=== PATIENT | male | born 1945 | race Caucasian/White ===

== ENCOUNTER 2022-03-20 18:24 | Inpatient (IN) | payer OTHER, MEDICARE, SELFPAY ==
[2022-03-20 18:26] VITALS: BP 128/77; PULSE 85; RESP 18; TEMP 36.7; O2SAT 95; BMI 17.9
--- NOTE | 2022-03-20 19:05 | XRR_ITS ---
PROCEDURE INFORMATION: Exam: XR Left Hip Exam date and time: 03/20/2022 7:09 PM Age: 76 years old Clinical indication: Injury or trauma; Fall; Blunt trauma (contusions or hematomas); Left; Hip; Additional info: Fall, include pelvis TECHNIQUE: Imaging protocol: XR Left hip. Views: 2 or 3 views hip with pelvis when performed. COMPARISON: No relevant prior studies available. FINDINGS: Bones/joints: There is a slightly displaced left-sided inter trochanteric fracture. No dislocation. Mild left acetabular spurring ane probable slight over coverage. 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 No acute findings on the right. Well maintained hip joint spaces on this nonweightbearing exam. Soft tissues: Unremarkable. Other findings: Three views submitted. XR/XR hip LT 2-3V wo/w pel* [id number] IMPRESSION: Left inter trochanteric fracture as described.
--- NOTE | 2022-03-20 19:05 | ED_ITS ---
Documented by User: DANIEL Eastman 03/20/22 20:30 HPI - Fall General: Chief Complaint: Fall Stated Complaint: FALL/ HIP PAIN Time Seen by Provider: 03/20/22 18:48 History of Present Illness: 76-year-old male patient comes in for injury to the left hip. Patient reports he was stepping up on to a curb to go visit with some friends. Patient missed stepped causing him to fall to his left side. Patient has pain and discomfort to the lateral left hip. Patient had to have assistance with standing. Patient reports pain with bearing weight to the hip. No obvious deformity is noted. Patient appears in moderate pain. Associated symptoms-after fall: Denies chest pain Review of Systems General: Reports: 10 or more systems reviewed and unremarkable except in HPI and below Const: Denies: fever(s) Card: Denies: chest pain Resp: Denies: dyspnea Musc: Reports: joint pain (Left hip) Skin/Breast: Denies: rash PFSH ED PFSH: Medical History Alcoholism History of psychiatric symptoms Describes intermittent history of nonspecific psychiatric symptoms ( told I was crazy ) dating back to teenage years but denies formal psychiatric diagnosis. No history of psychiatric hospitalization or medication management. Surgical History History of eye surgery History of hand surgery Family History Other Heart disease Denies family history of Anesthesia complication Bleeding disorder Social History Smoking and tobacco status: current every day smoker Alcohol intake: current Alcohol type: beer and hard liquor Lives independently: Yes Household members: none Marital status: Marital status details: 3 times service: Yes ([place]) Physical Exam Const: COMMON NORMALS: alert HENMT: COMMON NORMALS: atraumatic HEAD & SCALP: atraumatic Neck/C-Spine: COMMON NORMALS: full ROM Chest: CHEST: Yes tenderness (Mild left ribs, no crepitus) Resp: COMMON NORMALS: normal respiratory effort and clear to auscultation bilaterally AUSCULTATION: clear to auscultation bilaterally Cardio: COMMON NORMALS: regular rate and regular rhythm RATE: regular rate RHYTHM: regular rhythm GI: COMMON NORMALS: Soft to palpation and non-tender PALPATION: Yes Soft to palpation Back/Pelvis: COMMON NORMALS: thoracic and lumbar spine normal to inspection Extremity: LEFT LOWER EXTREMITY: Yes hip joint (Pain with palpation, decreased range of motion due to pain) Left hip: Yes inspection, Yes palpation and Yes ROM Neuro: SENSORIUM/ORIENTATION: Yes alert Psych: COMMON NORMALS: cooperative Skin: COMMON NORMALS: no rashes or lesions noted GENERAL SKIN EXAM: no rashes or lesions noted Course ED course: 1953, reviewed x-rays with Dr. Burk, noted a impact fracture between the femoral neck and intertrochanter. He recommended consulting Dr. Oliveros for recommendations of treatment. 2019, reviewed patient with Dr. Oliveros, she recommends medical for admission due to patient's age. Probably will not be able to do surgery until tomorrow afternoon. 2027, reviewed patient with Dr. Bird, hospitalist, for admission to medical surgical services. She agreed to plan and will evaluate patient for further treatment. Vital Signs: Vital signs: Vital Signs Temperature 98.9 F 03/26/22 11:42 Pulse Rate 68 03/26/22 11:42 Respiratory Rate 16 03/26/22 11:42 Blood Pressure 97/55 03/26/22 11:42 Pulse Oximetry 97 03/26/22 11:42 MDM - Fall Medical Decision Making 76-year-old male patient comes in today for fall injury. Patient reports left hip pain and difficulty of standing on the left hip. No obvious deformity is noted. Tenderness is noted on palpation. Patient is able to stand due to pain. Differential diagnosis includes hip fracture, pelvic fracture, contusion. X- ray of the hip and pelvis noted to impact fracture to the left hip. Distal pulses and sensation are intact. Reviewed patient with Dr. Oliveros who agreed to plan for consultation and treatment of fracture. Dr. Blanc was consulted for admission to the hospital for medical surgical services. Lab Data : 03/26/22 01:52 03/26/22 01:52 Radiology Impressions Chest X-Ray 03/20/22 19:45 IMPRESSION: No obvious acute consolidation. Limited exam as described. Followup including lateral view may be obtained if clinically indicated. Renal Ultrasound 03/21/22 09:09 IMPRESSION: Normal renal ultrasound Hip/Pelvis X-Ray 03/21/22 14:57 Impression: Internal fixation of left hip fracture. Laboratory Results WBC 11.4 10^3/uL (4.0-10.0) H 03/20/22 20: RBC 4.24 10^6/uL (4.1-5.3) 03/20/22: Hgb 14.0 g/dL (11.7-16.6) 03/20/22: Hct 41.1 % (42.0-52.0) L 03/20/22: MCV 96.9 fl (80-94) H 03/20/22 20: MCH 33.0 pg (28.0-34.0) 03/20/22: MCHC 34.1 g/dL (30.0-36.0) 03/20/22: RDW 13.0 % (12.1-15.1) 03/20/22: Plt Count 236 10^3/cmm (130-400) 03/20/22: MPV 10.0 fL (7.4-10.4) 03/20/22: Neut % (Auto) 83.2 % 03/20/22: Lymph % (Auto) 10.0 % 03/20/22: Toole % (Auto) 5.6 % 03/20/22: Eos % (Auto) 0.4 % 03/20/22: Baso % (Auto) 0.4 % 03/20/22: Neut # (Auto) 9.48 10^3/uL (1.8-7.7) H 03/20/22: Lymph # (Auto) 1.1 10^3/uL (0.8-4.8) 03/20/22: Toole # (Auto) 0.6 10^3/uL (0.2-0.9) 03/20/22: Eos # (Auto) 0.0 10^3/uL (0.0-0.8) 03/20/22: Baso # (Auto) 0.1 10^3/uL (0.0-0.1) 03/20/22: Nucleated RBC % (auto) 0 % 03/20/22 20: Nucleated RBCs # 0.0 /100WBC 03/20/22 20: Sodium 139 mmol/L (136-145) 03/20/22 20: Potassium 3.7 mmol/L (3.5-5.1) 03/20/22 20: Chloride 104 mmol/L (98-107) 03/20/22 20: Carbon Dioxide 26 mmol/L (22-29) 03/20/22 20: Anion Gap 12.7 (5-19) 03/20/22 20: BUN 17 mg/dL (8-23) 03/20/22 20: Creatinine 1.1 mg/dL (0.7-1.2) 03/20/22 20: GFR Calculation Not Reportable 03/20/22: Glucose 117 mg/dL (65-115) H 03/20/22 20: Calculated Osmolality 291 mOsm/kg (285-295) 03/20/22: Calcium 9.0 mg/dL (8.5-10.5) 03/20/22 20: Total Bilirubin 0.4 mg/dL (0.15-1.2) 03/20/22 20: AST 15 U/L (0-40) 03/20/22 20: ALT 7 U/L (0-41) 03/20/22 20: Alkaline Phosphatase 88 IU/L (40-130) 03/20/22 20: Total Protein 6.5 g/dL (6.6-8.7) L 03/20/22: Albumin 4.0 g/dL (3.5-5.2) 03/20/22 20: Globulin 2.5 g/dL (1.3-4.6) 03/20/22 20:23 Discharge Plan Discharge Patient Disposition: Admitted As Inpatient Admit Provider: Anabella Blanc Clinical Impression: Closed fracture of left hip Condition: Stable Discharge Diet: Usual diet Discharge Activity: Increase activity as tolerated and As per PT/OT instructions Sign Out Sign Out Data: Patient Sign Out occurred on 03/20/22 at 21:44. Patient's care was discussed, and care was transferred from to Bry Burk MD. Coding Level of Care Code ED Internal Communications Intern for Chg Fwd Exam Comprehensive Documented by User: Bry Burk MD 04/03/22 18:31 HPI - Fall General: Chief Complaint: Fall Stated Complaint: FALL/ HIP PAIN Time Seen by Provider: 03/20/22 18:48 PFSH ED PFSH: Medical History Alcoholism History of psychiatric symptoms Describes intermittent history of nonspecific psychiatric symptoms ( told I was crazy ) dating back to teenage years but denies formal psychiatric diagnosis. No history of psychiatric hospitalization or medication management. Surgical History History of eye surgery History of hand surgery Family History Other Heart disease Denies family history of Anesthesia complication Bleeding disorder Social History Smoking and tobacco status: current every day smoker Alcohol intake: current Alcohol type: beer and hard liquor Lives independently: Yes Household members: none Marital status: Marital status details: 3 times service: Yes ([place]) Course 2 Vital Signs: Vital signs: Vital Signs Temperature 98.9 F 03/26/22 11:42 Pulse Rate 68 03/26/22 11:42 Respiratory Rate 16 03/26/22 11:42 Blood Pressure 97/55 03/26/22 11:42 Pulse Oximetry 97 03/26/22 11:42 MDM - Fall Medical Decision Making 76-year-old male patient comes in today for fall injury. Patient reports left hip pain and difficulty of standing on the left hip. No obvious deformity is noted. Tenderness is noted on palpation. Patient is able to stand due to pain. Differential diagnosis includes hip fracture, pelvic fracture, contusion. X- ray of the hip and pelvis noted to impact fracture to the left hip. Distal pulses and sensation are intact. Reviewed patient with Dr. Oliveros who agreed to plan for consultation and treatment of fracture. Dr. Blanc was consulted for admission to the hospital for medical surgical services. I discussed this case with Baltazar SANCHEZ. I have reviewed documentation and imaging. I personally saw the patient. Distal CMS intact. Admitted for definitive management. Bry Burk MD Emergency Medicine Lab Data : 03/26/22 01:52 03/26/22 01:52 Radiology Impressions Chest X-Ray 03/20/22 19:45 IMPRESSION: No obvious acute consolidation. Limited exam as described. Followup including lateral view may be obtained if clinically indicated. Renal Ultrasound 03/21/22 09:09 IMPRESSION: Normal renal ultrasound Hip/Pelvis X-Ray 03/21/22 14:57 Impression: Internal fixation of left hip fracture. Laboratory Results WBC 11.4 10^3/uL (4.0-10.0) H 03/20/22 20: RBC 4.24 10^6/uL (4.1-5.3) 03/20/22 20: Hgb 14.0 g/dL (11.7-16.6) 03/20/22 20: Hct 41.1 % (42.0-52.0) L 03/20/22: MCV 96.9 fl (80-94) H 03/20/22 20: MCH 33.0 pg (28.0-34.0) 03/20/22 20: MCHC 34.1 g/dL (30.0-36.0) 03/20/22: RDW 13.0 % (12.1-15.1) 03/20/22: Plt Count 236 10^3/cmm (130-400) 03/20/22 20: MPV 10.0 fL (7.4-10.4) 03/20/22 20: Neut % (Auto) 83.2 % 03/20/22: Lymph % (Auto) 10.0 % 03/20/22: Toole % (Auto) 5.6 % 03/20/22 20: Eos % (Auto) 0.4 % 03/20/22 20: Baso % (Auto) 0.4 % 03/20/22: Neut # (Auto) 9.48 10^3/uL (1.8-7.7) H 03/20/22 20: Lymph # (Auto) 1.1 10^3/uL (0.8-4.8) 03/20/22: Toole # (Auto) 0.6 10^3/uL (0.2-0.9) 03/20/22 20: Eos # (Auto) 0.0 10^3/uL (0.0-0.8) 03/20/22: Baso # (Auto) 0.1 10^3/uL (0.0-0.1) 03/20/22: Nucleated RBC % (auto) 0 % 03/20/22: Nucleated RBCs # 0.0 /100WBC 03/20/22: Sodium 139 mmol/L (136-145) 03/20/22: Potassium 3.7 mmol/L (3.5-5.1) 03/20/22: Chloride 104 mmol/L (98-107) 03/20/22: Carbon Dioxide 26 mmol/L (22-29) 03/20/22 20: Anion Gap 12.7 (5-19) 03/20/22 20: BUN 17 mg/dL (8-23) 03/20/22: Creatinine 1.1 mg/dL (0.7-1.2) 03/20/22 20: GFR Calculation Not Reportable 03/20/22: Glucose 117 mg/dL (65-115) H 03/20/22: Calculated Osmolality 291 mOsm/kg (285-295) 03/20/22: Calcium 9.0 mg/dL (8.5-10.5) 03/20/22: Total Bilirubin 0.4 mg/dL (0.15-1.2) 03/20/22: AST 15 U/L (0-40) 03/20/22: ALT 7 U/L (0-41) 03/20/22: Alkaline Phosphatase 88 IU/L (40-130) 03/20/22: Total Protein 6.5 g/dL (6.6-8.7) L 03/20/22 Albumin 4.0 g/dL (3.5-5.2) 03/20/22 20:23 Globulin 2.5 g/dL (1.3-4.6) 03/20/22 20:23 Discharge Plan Discharge Patient Disposition: Admitted As Inpatient Admit Provider: Anabella Blanc Clinical Impression: Closed fracture of left hip Condition: Stable Discharge Diet: Usual diet Discharge Activity: Increase activity as tolerated and As per PT/OT instructions Sign Out Sign Out Data: Patient Sign Out occurred on 03/20/22 at 21:44. Patient's care was discussed, and care was transferred from to Bry Burk MD. Coding Level of Care Code ED Internal Communications Intern for Chg Fwd Exam Comprehensive
[2022-03-20 19:23] VITALS: BP 151/68; PULSE 68; RESP 16; O2SAT 92
--- NOTE | 2022-03-20 19:45 | XRR_ITS ---
PROCEDURE INFORMATION: Exam: XR Chest Exam date and time: 03/20/2022 7:51 PM Age: 76 years old Clinical indication: Injury or trauma; Fall; Blunt trauma (contusions or hematomas); Additional info: Hip fracture TECHNIQUE: Imaging protocol: Radiologic exam of the chest. Views: 1 view. COMPARISON: No relevant prior studies available. FINDINGS: Lungs: The lung bases are suboptimally assessed due to technique however the upper lungs are clear of focal consolidation. Pleural spaces: See Diaphragm finding. Heart/Mediastinum: Cardiac silhouette appears normal in size. No obvious vascular congestion. Diaphragm: The CP angles are partially excluded. No large pleural effusion or pneumothorax. Bones/joints: No acute osseous findings. Other findings: Single view was submitted. XR/XR chest 1V portable [id number] IMPRESSION: No obvious acute consolidation. Limited exam as described. Followup including lateral view may be obtained if clinically indicated.
--- NOTE | 2022-03-20 19:45 | ECG_ITS ---
[facility] Test Date: 2022-03-20 Pat Name: Camilo Dockery Department: Room: 264 Gender: Male Scene Shifter: : 1945 Requested By: Rylan Orourke Order Number: [id number] Monique MD: Patricia Oden M.D. Measurements Intervals [place] Rate: 67 P: 81 VT: 159 QRS: 84 QRSD: 91 T: 78 QT: 408 QTc: 434 Interpretive Statements SINUS RHYTHM WITH SINUS ARRHYTHMIA POSSIBLE LEFT ATRIAL ENLARGEMENT [-0.1mV P-WAVE IN V1/V2] No previous ECG available for comparison Electronically Signed On 03-22-2022 5:52:46 CDT by Patricia Oden M.D. [email or web address]
--- NOTE | 2022-03-20 20:02 | PC.PHAR ---
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
[2022-03-20 20:29] LABS: Basophils # 0.1 10^3/uL (0.0-0.1); Basophils % 0.4 %; Eosinophils % 0.4 %; Hematocrit 41.1 % (42.0-52.0); Lymphocytes # 1.1 10^3/uL (0.8-4.8); Mean Corpuscular HGB Conc 34.1 g/dL (30.0-36.0); Mean Corpuscular Volume 96.9 fl (80-94); Monocytes # 0.6 10^3/uL (0.2-0.9); Monocytes % 5.6 %; Neutrophils # 9.48 10^3/uL (1.8-7.7); Neutrophils % 83.2 %; Nucleated Red Blood Cells % 0 %; Platelet Count 236 10^3/cmm (130-400); Red Blood Count 4.24 10^6/uL (4.1-5.3); White Blood Count 11.4 10^3/uL (4.0-10.0)
[2022-03-20] MEDS: morphine 4 mg/mL SDV 1 mL 2 MG IVP ×2 (20:41→22:10)
[2022-03-20 20:49] LABS: Alanine Aminotransferase 7 U/L (0-41); Alkaline Phosphatase 88 IU/L (40-130); Anion Gap 12.7 (5-19); Aspartate Amino Transferase 15 U/L (0-40); Blood Urea Nitrogen 17 mg/dL (8-23); Carbon Dioxide 26 mmol/L (22-29); Chloride 104 mmol/L (98-107); Globulin 2.5 g/dL (1.3-4.6); Glucose 117 mg/dL (65-115); Osmolality Calculated 291 mOsm/kg (285-295); Potassium 3.7 mmol/L (3.5-5.1); Sodium 139 mmol/L (136-145); Total Bilirubin 0.4 mg/dL (0.15-1.2); Total Protein 6.5 g/dL (6.6-8.7)
[2022-03-20 22:10] VITALS: RESP 17
[2022-03-20 22:11] VITALS: BP 149/72; PULSE 69; RESP 18; O2SAT 92
--- NOTE | 2022-03-20 22:39 | P.HP_ITS ---
Providers/Chief Complaint Admitting Physician: Anabella Blanc MD Chief Complaint: FALL/ HIP PAIN History of Present Illness Camilo Dockery is a 76 year old male who presented to the emergency room with a complaint of left hip pain after a fall. He describes tripping over a curb and landing on his left side. He was unable to get up without assistance. Pain reported at a 10 out of 10. He was brought into the ER by EMS. The fall was mechanical from history obtained with no preceding symptoms. Work-up in the emergency room revealed a left intertrochanteric hip fracture. Case was discussed with on-call orthopedics and request was made for admission to hospitalist service. Patient has received a couple of doses of IV morphine with improved pain in the emergency room. History is obtained from Mr. Dockery himself. He does not have much medical history to describe. [facility] but it does not sound like he goes regularly. He reports that he was dismissed from the [facility] at one point because he was crazy . He talks about having had some psychiatric symptoms as far back as teenage years but has never had any type of formal diagnosis. No history of psychiatric hospitalization or medical treatment. He did serve in [place] and has been an alcoholic since he came back from there. He had issues with alcohol withdrawal a few times in the years immediately following his return. Never required hospitalization for alcohol use. He continues to drink when he can get it. His favorite drink is blackberry ingrid. A bottle will last him several months. His usual drink, which it does sound like is daily, is Heineken as much as I can get . Denies any recent issues with alcohol withdrawal. He will occasionally have a hit of marijuana but states that one joint will last him several month. Mr. Dockery has had prior eye surgery and left hand surgery involving the thumb. He did not have general anesthesia for either of these surgeries. He does state however that he was given some medication that put him to sleep by accident some time and had no issues with it. He mention this when asked about anesthesia history but specific details about what the medication was and other information about the event are not recalled. No known history of bleeding or clotting disorders, kidney disease, known heart disease. He denies complaints of chest pain or difficulty breathing. He is able to manage his own activities of daily living and does get out and walks around but would not describe himself as very active regularly. He lives alone. Does not have any family that he maintains contact with. He does not have anybody in particular that he would want to manage his affairs should he be unable to. He was very clear that if something were to happen and he would appear to be dying, that we should let him go. He makes his own decisions on financial and other matters. At times during my discussion with Mr. Dockery, he mentioned being crazy and had some interesting things to say, but also stated he has been told he was quite sane when specifically evaluated. As some examples, he describes having had COVID in the early days, but states that I could feel it when it came into my body and got down into my lungs. I was able to breathe out very strongly and know that it was gone a short time later and that I would not get it again. I taught my body to manage things when I was young. I was very tired after that. He never received direct medical care for COVID and did not receive nor does he desire COVID vaccination. He reports wanting to get rid of certain Democratic presidential candidates and that he watches [employer] regularly and has guns at home that others know about , but at the same time indicates that he knows he cannot do anything about that. Mr. Dockery is oriented to person, month and year, current president, current city and state. He is able to provide details of his history dating back to teenage years. He reports reading regularly, listening to music and watching TV. He maintained coherent conversation for the time that it took me to evaluate him this evening, with no need to be redirected, to repeat questions. He is very pleasant and cooperative. Review of Systems Const: Denies: fever(s), chills, change in appetite or change in weight (Denies weight loss, chronically thin build with weight usually around 115#) Eyes: Reports: other (Left pupil chronically irregular from surgery); Denies: change in vision ENMT: Reports: other (Bad teeth); Denies: throat pain or nasal congestion Card: Reports: other (Not very active); Denies: chest pain, palpitations or edema Resp: Denies: dyspnea, productive cough, non-productive cough, wheezing or chest congestion GI: Reports: diarrhea (After most episodes of oral intake); Denies: abdominal pain, nausea, vomiting, constipation, hematochezia or melena : Denies: difficulty urinating or hematuria Musc: Reports: extremity pain (Left hip/leg) Skin/Breast: Denies: rash, pruritus or sores Neuro: Denies: headache(s), numbness in extremities, weakness in extremities, difficulty walking, frequent falls, dizziness, confusion, Slurred speech present or involuntary movements Psych: Denies: anxiety, depression, visual hallucinations or auditory hallucinations Endo: Reports: cold intolerance; Denies: excessive sweating Genaro/Lymph: Denies: easy bruising or easy bleeding Medications/Allergies Home Medications Medication Instructions Recorded Confirmed Last Taken Type ibuprofen 200 mg tablet 200 mg PO Q6H PRN 03/20/22 03/20/22 Unknown History aspirin 325 mg tablet 325 mg PO Q6H PRN 03/21/22 03/21/22 Unknown History Allergies Allergy/AdvReac Type Severity Reaction Status Date / Time Penicillins Allergy Unknown Unknown Verified 03/20/22 20:02 PFSH Acute PFSH: Medical History (Updated 03/20/22 @ 23:35 by Anabella Blanc MD) Alcoholism History of psychiatric symptoms Describes intermittent history of nonspecific psychiatric symptoms ( told I was crazy ) dating back to teenage years but denies formal psychiatric felicia gnosis. No history of psychiatric hospitalization or medication management. Surgical History (Updated 03/20/22 @ 23:33 by Anabella Blanc MD) History of eye surgery History of hand surgery Family History (Updated 03/21/22 @ 00:02 by Anabella Blanc MD) Other Heart disease Denies family history of Anesthesia complication Bleeding disorder Social History (Updated 03/21/22 @ 00:06 by Anabella Blanc MD) Smoking and tobacco status: current every day smoker Alcohol intake: current Alcohol type: beer and hard liquor Alcohol use comment: Drinks regularly, what ever I can get Heineken and blackberry ingrid Substance/Drug Use: current Substance/Drug use type: Marijuana Other substance/drug use details: Occasional use, one joint will last several months Lives independently: Yes Household members: none Marital status: Marital status details: 3 times service: Yes ([place]) Other PFSH information: Supplemental PFSH Information: Patient denies any history of heart disease, pulmonary disease, kidney disease, blood clotting or bleeding disorders, cancer, stroke. He does not take any medications regularly. He is followed for medical care intermittently over the years through the [facility]. Vitals/I&O/Wt Last Vital Signs Temp 98.0 F 03/20/22 18:26 Pulse 69 03/20/22 22:11 Resp 18 03/20/22 22:11 BP 149/72 03/20/22 22:11 Pulse Ox 92 03/20/22 22:11 Weight last 48 hrs Weight 56.699 kg Physical Exam Narrative: Constitutional: Awake and alert, thin build HEENT: Mild bitemporal wasting and sunken cheek appearance which patient indicates is normal for him. Left pupil is ovoid horizontally compared to the right. Extraocular movements are intact. No nystagmus. Nasopharynx is clear. Oropharynx with very poor dentition, some necrotic teeth, moist mucous membranes. Neck: Supple Respiratory: Clear to auscultation bilaterally without any rales rhonchi or wheezes noted Cardiovascular: Regular rate and rhythm, no murmurs gallops or rubs, 2+ pulses are equal x4 Abdomen: Soft, nontender, nondistended, positive bowel sounds Extremities: No pitting edema, left lower extremity is externally rotated and shortened, no bruising noted on visible portions of the hip, tender with palpation. Mild clubbing is noted of the digits. Skin: Dry, abrasion/skin tear left elbow with recent bleeding notable, no active bleeding. Neuro: Speech clear, face symmetric, moves toes of left foot, strength equal in other extremities, no abnormal movements Psych: Has some differing points of view about certain topics but is alert and oriented x4. There suggestion of possible paranoia in talking to him but he has insight into this and does not indicate recent changes from baseline Data : 03/20/22 20:23 03/20/22 20:23 Other Labs: Radiology Impressions Hip/Pelvis X-Ray 03/20/22 19:05 IMPRESSION: Left inter trochanteric fracture as described. Chest X-Ray 03/20/22 19:45 Lungs: The lung bases are suboptimally assessed due to technique however the upper lungs are clear of focal consolidation. Pleural spaces: See Diaphragm finding. Heart/Mediastinum: Cardiac silhouette appears normal in size. No obvious vascular congestion. Diaphragm: The CP angles are partially excluded. No large pleural effusion or pneumothorax. Bones/joints: No acute osseous findings. IMPRESSION: No obvious acute consolidation. Limited exam as described. Followup including lateral view may be obtained if clinically indicated. Laboratory Results WBC 11.4 10^3/uL (4.0-10.0) H 03/20/22 20: RBC 4.24 10^6/uL (4.1-5.3) 03/20/22: Hgb 14.0 g/dL (11.7-16.6) 03/20/22: Hct 41.1 % (42.0-52.0) L 03/20/22: MCV 96.9 fl (80-94) H 03/20/22: MCH 33.0 pg (28.0-34.0) 03/20/22: MCHC 34.1 g/dL (30.0-36.0) 03/20/22: RDW 13.0 % (12.1-15.1) 03/20/22: Plt Count 236 10^3/cmm (130-400) 03/20/22: MPV 10.0 fL (7.4-10.4) 03/20/22: Neut % (Auto) 83.2 % 03/20/22: Lymph % (Auto) 10.0 % 03/20/22: [place] % (Auto) 5.6 % 03/20/22: Eos % (Auto) 0.4 % 03/20/22: Baso % (Auto) 0.4 % 03/20/22: Neut # (Auto) 9.48 10^3/uL (1.8-7.7) H 03/20/22: Lymph # (Auto) 1.1 10^3/uL (0.8-4.8) 03/20/22: [place] # (Auto) 0.6 10^3/uL (0.2-0.9) 03/20/22: Eos # (Auto) 0.0 10^3/uL (0.0-0.8) 03/20/22: Baso # (Auto) 0.1 10^3/uL (0.0-0.1) 03/20/22 20: Nucleated RBC % (auto) 0 % 03/20/22 20: Nucleated RBCs # 0.0 /100WBC 03/20/22 20: Sodium 139 mmol/L (136-145) 03/20/22 20: Potassium 3.7 mmol/L (3.5-5.1) 03/20/22 20: Chloride 104 mmol/L (98-107) 03/20/22: Carbon Dioxide 26 mmol/L (22-29) 03/20/22 20: Anion Gap 12.7 (5-19) 03/20/22 20: BUN 17 mg/dL (8-23) 03/20/22: Creatinine 1.1 mg/dL (0.7-1.2) 03/20/22 20: GFR Calculation Not Reportable 03/20/22: Glucose 117 mg/dL (65-115) H 03/20/22: Calculated Osmolality 291 mOsm/kg (285-295) 03/20/22: Calcium 9.0 mg/dL (8.5-10.5) 03/20/22: Total Bilirubin 0.4 mg/dL (0.15-1.2) 03/20/22 20: AST 15 U/L (0-40) 03/20/22: ALT 7 U/L (0-41) 03/20/22: Alkaline Phosphatase 88 IU/L (40-130) 03/20/22: Total Protein 6.5 g/dL (6.6-8.7) L 03/20/22: Albumin 4.0 g/dL (3.5-5.2) 03/20/22: Globulin 2.5 g/dL (1.3-4.6) 03/20/22 20:23 A&P Assessment and plan (1) Closed intertrochanteric fracture of left femur: Status: Acute (2) Alcoholism: Status: Chronic (3) Nicotine dependence, cigarettes, uncomplicated: Status: Chronic (4) History of psychiatric symptoms: Status: Chronic Plan Inpatient admission Orthopedics consultation for surgical management of hip fracture Pain control Will have stool softener and as needed laxative, monitor as he reports usually having loose stools Vitamin B12 and folate [facility] protocol Monitor blood sugars for drop Maintenance IV fluids while n.p.o. Nicotine patch if needed Monitor for development of respiratory symptoms given smoking history Check urinalysis Ramos catheter placement perioperatively N.p.o. after light early breakfast based on information provided that surgery will be tomorrow afternoon around 3 SCDs for DVT prophylaxis currently with plan for pharmacological prophylaxis postoperatively Disposition planning discussed with patient and he is aware of need for rehabilitation and agreeable to such. We also talked about the challenges of the fact that he lives alone and does not really have anybody that could help him. He mentioned that he might be able to get some assistance through the [facility] once he is ready to go back home. Patient makes his own decisions, has no specific person currently whom he would like to make decisions for him should he not be able to speak for himself Patient desires to be allowed natural in the event that he has an acute deterioration in clinical condition that is anticipated to lead to and based on my discussion with him today my clinical opinion is he is able to make this decision for himself Attestations Medical Necessity Statement*: Camilo Wong Case's hospital stay will require greater than 2 midnights for management of hip fracture status post accidental fall that will require surgical intervention. Additionally patient has a history of regular alcohol use and is at risk for acute alcohol withdrawal that may alter the course of hospital care. Coding Level of Care Code Acute Grooming Assistant for [facility] Diagnoses Closed intertrochanteric fracture of left femur S72.142A Nicotine dependence, cigarettes, uncomplicated F17.210 History of psychiatric symptoms Z86.59 Alcoholism F10.20
[2022-03-20 22:47] VITALS: BP 130/83; PULSE 72; RESP 15; O2SAT 94
[2022-03-20 23:45] VITALS: BP 105/71; PULSE 73; RESP 17; O2SAT 95
[2022-03-20 23:48] LABS: Glucose Point of Care 105 mg/dL (70-110)
[2022-03-21] VITALS (17 sets, daily range): BP systolic 93–148; BP diastolic 50–81; PULSE 60–82; RESP 16–20; TEMP 36.2–37.9; O2SAT 92–99
--- NOTE | 2022-03-21 | SCC_ITS ---
Procedure done: Open reduction internal fixation left intertrochanteric femur fracture 134.6 seconds of fluoroscopic guidance, for a cumulative dose of 6.06 mGy, was provided to Dr. Rhodes by the radiology department. C-arm images of the left hip were saved for the patient's permanent record. [facility] HOSPITALRaquel
[2022-03-21 01:07] LABS: Add Urine Microscopic? YES; Bilirubin Urine Neg (Negative); Blood Urine 3+ (Negative); Glucose Urine UA Norm (Normal); Ketones Urine 1+ (Negative); Leukocyte Esterase Urine Negative (Negative); Nitrate Urine Negative (Negative); Protein Urine Neg (Negative); Specific Gravity, Urine 1.025 (1.005-1.030); Urine Appearance Clear (CLEAR); Urine Color Yellow (Yellow); Urobilinogen Urine Norm (Negative); pH Urine 5 (5-7)
[2022-03-21 01:08] LABS: Add Urine Culture? Yes; Bacteria Urine TRACE /hpf; RBC Urine >100 /hpf (0-2); Squamous Epithelial Cell Urine 0-4 /hpf (0-5); WBC Urine 0-4 /hpf (0-5)
[2022-03-21 05:42] LABS: INR 1.13 (0.8-1.2)
[2022-03-21 05:52] LABS: Anion Gap 11.8 (5-19); Blood Urea Nitrogen 15 mg/dL (8-23); Calcium 8.5 mg/dL (8.5-10.5); Carbon Dioxide 26 mmol/L (22-29); Chloride 105 mmol/L (98-107); Glucose 124 mg/dL (65-115); Magnesium 1.8 mg/dL (1.7-2.3); Osmolality Calculated 290 mOsm/kg (285-295); Potassium 3.8 mmol/L (3.5-5.1); Sodium 139 mmol/L (136-145)
[2022-03-21] MEDS: D5-NS 0.45% + KCL 20 mEq 20 MEQ/1,000 ML BAG 50 MEQ IV (06:45)
[2022-03-21] MEDS: pantoprazole DR 40 mg Tablet PO (08:34)
[2022-03-21] MEDS: docusate sodium 100 mg Capsule PO ×2 (08:34→18:38)
[2022-03-21] MEDS: folic acid 1 mg Tablet PO (08:35)
[2022-03-21] MEDS: oxyCODONE 5 mg IR Tab/Cap PO (08:35)
[2022-03-21] MEDS: multivitamin therapeutic Tablet 1 TAB PO (08:35)
[2022-03-21] MEDS: thiamine 100 mg Tablet PO (08:37)
--- NOTE | 2022-03-21 09:09 | US_ITS ---
WS: [id number] ULTRASOUND RENAL TECHNIQUE: Ultrasound examination of both kidneys. CLINICAL INFORMATION: hematuria COMPARISON: None. FINDINGS: RIGHT: Right kidney is normal in size and appearance. Echogenicity: Normal. Cortical thickness: 1.0 cm; Normal. Hydronephrosis: None. Perinephric fluid: None. Right kidney measures: 9.3 cm x 3.8 cm x 3.3 cm. LEFT: Left kidney is normal in size and appearance. Echogenicity: Normal. Cortical thickness: 1.1 cm; Normal. Hydronephrosis: None. Perinephric fluid: None. Left kidney measures: 9.4 cm x 4.4 cm x 4.9 cm. Normal visualized aorta. Ramos catheter. US/US renal BI* [id number] IMPRESSION: Normal renal ultrasound
--- NOTE | 2022-03-21 13:04 | P.CONIM_ITS ---
Providers/Reason For Consult Consulting Physician/Specialty*: Halley Rhodes MD Reason for Consult*: Left intertrochanteric hip fracture Requesting Physician: DANIEL Dhaliwal Attending Physician: Alexis Austin MD Primary Care Provider: [place] History of Present Illness History of Present Illness Camilo Wong Case is a 76 year old male who presented last evening to the emergency department with complaints of left hip pain and inability to ambulate. In my discussion with the patient, he states he thinks he tripped over a curb. He denies other reason for his fall. In the emergency department, he rated his pain at a 10 out of 10 and was brought to the emergency department by EMS. The patient lives alone, and he does not regularly see his primary care who is the [facility]. He was admitted to the medical service, and I was consulted for appropriate treatment of his intertrochanteric hip fracture. Review of Systems General: Reports: 10 or more systems reviewed and unremarkable except in HPI and below Const: Denies: fever(s), chills, change in appetite or change in weight (Denies weight loss, chronically thin build with weight usually around 115#) Eyes: Reports: other (Left pupil chronically irregular from surgery); Denies: change in vision ENMT: Reports: other (Bad teeth); Denies: throat pain or nasal congestion Card: Reports: other (Not very active); Denies: chest pain, palpitations or edema Resp: Denies: dyspnea, productive cough, non-productive cough, wheezing or chest congestion GI: Reports: diarrhea (After most episodes of oral intake); Denies: abdominal pain, nausea, vomiting, constipation, hematochezia or melena : Denies: difficulty urinating or hematuria Musc: Reports: extremity pain (Left hip/leg) and joint pain (Left hip) Skin/Breast: Denies: rash, pruritus or sores Neuro: Denies: headache(s), numbness in extremities, weakness in extremities, difficulty walking, frequent falls, dizziness, confusion, Slurred speech present or involuntary movements Psych: Denies: anxiety, depression, visual hallucinations or auditory hallucinations Endo: Reports: cold intolerance; Denies: excessive sweating Genaro/Lymph: Denies: easy bruising or easy bleeding Medications/Allergies Home Medications Medication Instructions Recorded Confirmed Last Taken Type ibuprofen 200 mg tablet 200 mg PO Q6H PRN 03/20/22 03/20/22 Unknown History aspirin 325 mg tablet 325 mg PO Q6H PRN 03/21/22 03/21/22 Unknown History Allergies Allergy/AdvReac Type Severity Reaction Status Date / Time Penicillins Allergy Unknown Unknown Verified 03/20/22 20:02 Current Medications Generic Name Dose Route Start Last Admin Trade Name Freq PRN Reason Stop Dose Admin Docusate Sodium 100 mg 03/21/22 09:00 03/21/22 08:34 Docusate Sodium 100 Mg Capsule PO 100 mg BID GUSTAVO Administration Folic Acid 1 mg 03/21/22 09:00 03/21/22 08:35 Folic Acid 1 Mg Tablet PO 1 mg DAILY GUSTAVO Administration Potassium Chloride/Dextrose/Sod Cl 20 meq in 1,000 mls @ 50 mls/hr 03/21/22 06:00 03/21/22 06:45 D5-Ns 0.45% + Kcl 20 Meq IV 50 mls/hr .Q20H GUSTAVO Administration Multivitamins Therapeutic 1 tab 03/21/22 09:00 03/21/22 08:35 Multivitamin Therapeutic Tablet PO 1 tab DAILY GUSTAVO Administration Oxycodone HCl 5 mg 03/20/22 23:45 03/21/22 08:35 Oxycodone 5 Mg Ir Tab/Cap PO 5 mg Q6H PRN Administration moderate to severe pain Pantoprazole Sodium 40 mg 03/21/22 09:00 03/21/22 08:[address] 40 Mg Tablet PO 40 mg DAILY GUSTAVO Administration Thiamine Mononitrate 100 mg 03/21/22 09:00 03/21/22 08:37 Thiamine 100 Mg Tablet PO 100 mg DAILY GUSTAVO Administration PFSH Acute PFSH: Medical History Alcoholism History of psychiatric symptoms Describes intermittent history of nonspecific psychiatric symptoms ( told I was crazy ) dating back to teenage years but denies formal psychiatric diagnosis. No history of psychiatric hospitalization or medication manag ement. Surgical History History of eye surgery History of hand surgery Family History Other Heart disease Denies family history of Anesthesia complication Bleeding disorder Social History Smoking and tobacco status: current every day smoker Alcohol intake: current Alcohol type: beer and hard liquor Alcohol use comment: Drinks regularly, what ever I can get Heineken and blackberry ingrid Substance/Drug Use: current Substance/Drug use type: Marijuana Other substance/drug use details: Occasional use, one joint will last several months Lives independently: Yes Household members: none Marital status: Marital status details: 3 times service: Yes ([place]) Other [facility] information: Supplemental [facility] Information: Patient denies any history of heart disease, pulmonary disease, kidney disease, blood clotting or bleeding disorders, cancer, stroke. He does not take any medications regularly. He is followed for medical care intermittently over the years through the [place]. Vitals/I&O/Wt Last Vital Signs Temp 98.1 F 03/21/22 12:00 Pulse 70 03/21/22 12:00 Resp 16 03/21/22 12:00 BP 93/50 03/21/22 12:00 Pulse Ox 94 03/21/22 12:00 Weight last 48 hrs Weight 125 lb Physical Exam Const: COMMON NORMALS: no acute distress, patient oriented x3 and alert GENERAL APPEARANCE: cooperative and comfortable NUTRITIONAL APPEARANCE: thin ORIENTATION/CONSCIOUSNESS: Yes awake HENMT: COMMON NORMALS: normocephalic and atraumatic HEAD & SCALP: normocephalic and atraumatic Eye: GENERAL EYE: appearance normal, both eyes and all related structures Chest: COMMONS NORMALS: normal inspection of the chest Resp: COMMON NORMALS: normal respiratory effort EFFORT & INSPECTION: Yes able to speak in complete sentences and Yes symmetric chest movement Extremity: LEFT LOWER EXTREMITY: Yes hip joint (The leg is held with the knee flexed and externally rotated) Left hip: Yes ROM (Painful) and Yes neurovascular exam (Intact distally) Neuro: COMMON NORMALS: patient oriented x3 SENSORIUM/ORIENTATION: Yes alert Psych: COMMON NORMALS: mental status grossly normal APPEARANCE: Yes grossly normal ATTITUDE: Yes calm and Yes engaged ATTENTION/CONCENTRATION: Yes attention grossly intact Skin: COMMON NORMALS: no rashes or lesions noted GENERAL SKIN EXAM: no rashes or lesions noted Urinary Catheter Management: Ramos: Cath Placed During This Visit: yes Reason for Continuing Indwelling Catheter: Required Immobilization for Trauma or Surgery or Anesthesia Urinary Catheter Date of Insertion: 03/21/22 Urinary Catheter Time of Insertion: 00:41 Data : 03/20/22 20:23 03/21/22 05:10 Xray Ortho: I personally reviewed and interpreted this imaging study as follows: My impression: Patient is noted to have a left intertrochanteric hip fracture which is very min imally displaced. The fracture is comminuted particularly in the area of the greater trochanter. There is no evidence of femoral neck fracture. There is little no obvious shortening, but there is acetabular osteophyte formation which could contribute to femoral acetabular impingement. A&P Assessment and plan (1) Closed intertrochanteric fracture of left femur: Patient fell suffering a comminuted intertrochanteric left hip fracture with minimal shortening and minimal displacement. He was admitted through the emerg ency department for treatment. He was evaluated by the medical service as well. Discussion is undertaken with the patient that this is a fracture that will require open reduction internal fixation. He has been scheduled for this later this afternoon. Risks and complications were discussed, and the consent was left for signature. The patient will likely require inpatient rehabilitation following his hospital stay. Status: Acute Coding Level of Care Code Acute Diesel Powerplant Supervisor for [facility] Fwd Diagnoses Closed intertrochanteric fracture of left femur S72.142A
--- NOTE | 2022-03-21 14:11 | P.ANESASSM_ITS ---
Pre-Anesthetic Assessment Height/Weight: Height 1.78 m Weight 56.699 kg Temp Pulse Resp BP Pulse Ox 98.1 F 70 16 93/50 94 03/21/22 12:00 03/21/22 12:00 03/21/22 12:00 03/21/22 12:00 03/21/22 12:00 Preop Diagnosis: Left Intertrochanteric fracture femur Operation Date: 03/21/22 14:30 Proposed Procedures p Trochanteric Femoral Nail(Left) - Halley Rhodes MD Familial anesthetic complications: None Was Beta Paul taken within 24 hours: N/A Was Clonidine taken within 24 hours: N/A Last intake: Intake Last Liquid Date 03/21/22 Last Liquid Time 08:30 Last Solid Date 03/19/22 Last Solid Time 13:30 Social Alcohol and Tobacco Exam alert, oriented x 3, clear to auscultation bilaterally and regular rate & rhythm Airway Mallampati: Class II Dentition: other (multiple missing, chipped) Pulmonary None reported CV/HEM None reported None reported Hepatic None reported GI None reported Metabolic [place]x [place] [facility] [place] None reported Neuropsych ?psychiatic history Anesthetic Plan ASA status: 2 Anesthesia: General Risk of > 500 ml blood loss (7ml/kg in children): No Medications/Allergies Home Medications Medication Instructions Recorded Confirmed Last Taken Type ibuprofen 200 mg tablet 200 mg PO Q6H PRN 03/20/22 03/20/22 Unknown History aspirin 325 mg tablet 325 mg PO Q6H PRN 03/21/22 03/21/22 Unknown History Allergies Allergy/AdvReac Type Severity Reaction Status Date / Time Penicillins Allergy Unknown Unknown Verified 03/20/22 20:02 Current Medications Generic Name Dose Route Start Last Admin Trade Name Feliberto PRN Reason Stop Dose Admin Docusate Sodium 100 mg 03/21/22 09:00 03/21/22 08:34 Docusate Sodium 100 Mg Capsule PO 100 mg BID GUSTAVO Administration Folic Acid 1 mg 03/21/22 09:00 03/21/22 08:35 Folic Acid 1 Mg Tablet PO 1 mg DAILY GUSTAOV Administration Potassium Chloride/Dextrose/Sod Cl 20 meq in 1,000 mls @ 50 mls/hr 03/21/22 06:00 03/21/22 06:45 D5-Ns 0.45% + Kcl 20 Meq IV 50 mls/hr .Q20H GUSTAVO Administration Multivitamins Therapeutic 1 tab 03/21/22 09:00 03/21/22 08:35 Multivitamin Therapeutic Tablet PO 1 tab DAILY GUSTAVO Administration Oxycodone HCl 5 mg 03/20/22 23:45 03/21/22 08:35 Oxycodone 5 Mg Ir Tab/Cap PO 5 mg Q6H PRN Administration moderate to severe pain Pantoprazole Sodium 40 mg 03/21/22 09:00 03/21/22 08:[address] 40 Mg Tablet PO 40 mg DAILY GUSTAVO Administration Thiamine Mononitrate 100 mg 03/21/22 09:00 03/21/22 08:37 Thiamine 100 Mg Tablet PO 100 mg DAILY GUSTAVO Administration PFSH Anesthesia Medical History Alcoholism History of psychiatric symptoms Describes intermittent history of nonspecific psychiatric symptoms ( told I was crazy ) dating back to teenage years but denies formal psychiatric diagnosis. No history of psychiatric hospitalization or medication management. Surgical History History of eye surgery History of hand surgery Family History Other Heart disease Denies family history of Anesthesia complication Bleeding disorder Social History Smoking and tobacco status: current every day smoker Alcohol intake: current Alcohol type: beer and hard liquor Alcohol use comment: Drinks regularly, what ever I can get [employer] and blackberry ingrid Substance/Drug Use: current Substance/Drug use type: Marijuana Other substance/drug use details: Occasional use, one joint will last several months Lives independently: Yes Household members: none Marital status: Marital status details: 3 times service: Yes ([place]) Supplemental PFSH Information Patient denies any history of heart disease, pulmonary disease, kidney disease, blood clotting or bleeding disorders, cancer, stroke. He does not take any medications regularly. He is followed for medical care intermittently over the years through the [facility]. Data Anesthesia : 03/20/22 20:23 03/21/22 05:10 Short CBC 03/20/22 Range/Units 20:23 WBC 11.4 H (4.0-10.0) 10^3/uL Hgb 14.0 (11.7-16.6) g/dL Hct 41.1 L (42.0-52.0) % MCV 96.9 H (80-94) fl Plt Count 236 (130-400) 10^3/cmm Neut % (Auto) 83.2 % Neut # (Auto) 9.48 H (1.8-7.7) 10^3/uL BMP 03/20/22 03/21/22 20:23 05:10 Sodium 139 139 Potassium 3.7 3.8 Chloride 104 105 Carbon Dioxide 26 26 BUN 17 15 Creatinine 1.1 1.1 Glucose 117 H 124 H Calcium 9.0 8.5 Liver Function 03/20/22 Range/Units 20:23 Total Bilirubin 0.4 (0.15-1.2) mg/dL AST 15 (0-40) U/L ALT 7 (0-41) U/L Alkaline Phosphatase 88 (40-130) IU/L Albumin 4.0 (3.5-5.2) g/dL Urine 03/21/22 Range/Units 00:40 Urine Color Yellow (Yellow) Urine Appearance Clear (CLEAR) Urine pH 5 (5-7) Ur Specific [place] 1.025 (1.005-1.030) Urine Protein Neg (Negative) Urine Glucose (UA) Norm (Normal) Urine Ketones 1+ H (Negative) Urine Nitrate Negative (Negative) Urine Bilirubin Neg (Negative) Ur Leukocyte Esterase Negative (Negative) Urine RBC >100 H (0-2) /hpf Urine WBC 0-4 H (0-5) /hpf Coags 03/21/22 05:10 PT 14.80 INR 1.13 Cardiac Studies: No Data to Display
[2022-03-21] MEDS: acetaminophen 1,000 MG/100 ML PIGGYBACK 400 MG IV (14:21)
[2022-03-21] MEDS: CELEcoxib 200 mg Capsule 400 MG PO (14:21)
[2022-03-21] MEDS: sodium chloride 0.9% 1,000 ML 30 ML IV (14:32)
[2022-03-21] MEDS: vancomycin 1,000 MG in sodium chloride 0.9% 250 ML 250 MG IV (14:33)
--- NOTE | 2022-03-21 14:57 | XR_ITS ---
WS: [id number] Left hip, C-arm fluoroscopy, 03/21/2022 Clinical Data: or pics Comparison: Left hip and pelvis, 03/20/2022. Findings: The left hip intertrochanteric fracture has been repaired with a left hip nail and a proximal intrame dullary keila. XR/XR hip LT 2-3V wo/w pel* [id number] Impression: Internal fixation of left hip fracture.
--- NOTE | 2022-03-21 14:57 | PC.NURSE ---
1355 Pt went down to surgery via bed.
--- NOTE | 2022-03-21 15:27 | PM.PN ---
Subjective Subjective: Patient was seen this morning he denies any cardiovascular history, denies any chest pain, he does report a prior history of alcoholism, now tells me that typically he will drink a sixpack of beer over a week, he denies any suicidal ideation, he did initially tell me that he does not like the democratic candidates, does not like Biden, they have caused him a lot of personal anguish, however he explicitly denies any homicidal ideation or plan, currently his pain is well controlled Vitals/I&O/Wt Last Vital Signs Temp 100.2 F H 03/21/22 14:34 Pulse 60 03/21/22 14:34 Resp 18 03/21/22 14:34 BP 96/61 03/21/22 14:34 Pulse Ox 99 03/21/22 14:34 03/21/22 03/21/22 03/21/22 06:59 14:59 22:59 Intake Total 100 / 100 Balance 100 / 100 Weight last 48 hrs Weight 56.699 kg Physical Exam Const: COMMON NORMALS: no acute distress and patient oriented x3 Resp: COMMON NORMALS: normal respiratory effort, No retractions, No use of accessory muscles and clear to auscultation bilaterally AUSCULTATION: clear to auscultation bilaterally Cardio: COMMON NORMALS: regular rate, regular rhythm, S1 normal heart sound present and S2 normal heart sound present RATE: regular rate RHYTHM: regular rhythm HEART SOUNDS: S1 normal heart sound present and S2 normal heart sound present GI: COMMON NORMALS: Normal to inspection, nondistended, normoactive bowel sounds present, Soft to palpation, non-tender and No hepatosplenomegaly present PALPATION: Yes Soft to palpation and Yes No hepatosplenomegaly present Extremity: COMMON NORMALS: no pedal edema Neuro: COMMON NORMALS: patient oriented x3 Psych: COMMON NORMALS: mental status grossly normal Urinary Catheter Management: Ramos: Cath Placed During This Visit: yes Reason for Continuing Indwelling Catheter: Required Immobilization for Trauma or Surgery or Anesthesia Urinary Catheter Date of Insertion: 03/21/22 Urinary Catheter Time of Insertion: 00:41 Data : 03/20/22 20:23 03/21/22 05:10 A&P Assessment and plan (1) Closed intertrochanteric fracture of left femur: Status: Acute (2) Alcoholism: Status: Chronic (3) Nicotine dependence, cigarettes, uncomplicated: Status: Chronic (4) History of psychiatric symptoms: Status: Chronic Plan Inpatient admission Plan for the OR this afternoon Pain control Will have stool softener and as needed laxative, monitor as he reports usually having loose stools Vitamin B12 and folate [facility] protocol Monitor blood sugars for drop Maintenance IV fluids while n.p.o. Nicotine patch if needed Monitor for development of respiratory symptoms given smoking history UA shows greater than 100 RBCs, will do renal ultrasound Ramos catheter placement perioperatively N.p.o. after light early breakfast based on information provided that surgery will be tomorrow afternoon around 3 SCDs for DVT prophylaxis currently with plan for pharmacological prophylaxis postoperatively Disposition planning discussed with patient and he is aware of need for rehabilitation and agreeable to such. We also talked about the challenges of the fact that he lives alone and does not really have anybody that could help him. He mentioned that he might be able to get some assistance through the [facility] once he is ready to go back home. 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
[2022-03-21] MEDS: vancomycin 1,000 MG SDV 1000 MG IRRIGATION (15:50)
--- NOTE | 2022-03-21 16:32 | PM.OP ---
Operative Report Date of procedure: March 21, 2022 Pre-op diagnosis: Left Intertrochanteric fracture femur Post-op diagnosis: Left Intertrochanteric fracture femur Post-op findings: Comminuted left intertrochanteric femur fracture Procedure done: Open reduction internal fixation left intertrochanteric femur fracture Implants: Zhanna gamma 3 trochanteric nail system with a size 11 mm x 180 mm x 125 degree trochanteric nail, a lag screw size 10.5 mm x 105 mm, and a distal locking screw size 5 mm x 35 mm Specimens removed/disposition: None Surgeon: Halley Rhodes Manager Long Term Care: None Anesthesia: General (Intubated, ASA 2) Estimated blood loss (mL): 50 IV fluids (mL): 700 Urine output (mL): 200 Complications: None Condition: stable Disposition: PACU (Then return to floor for postoperative rehabilitation and pain control) Brief History: Camilo Dockery is a 76 year old male who presented last evening to the emergency department with complaints of left hip pain and inability to ambulate.? In my discussion with the patient, he states he thinks he tripped over a curb.? He denies other reason for his fall.? In the emergency department, he rated his pain at a 10 out of 10 and was brought to the emergency department by EMS.? The patient lives alone, and he does not regularly see his primary care who is the [facility].? He was admitted to the medical service, and I was consulted for appropriate treatment of his intertrochanteric hip fracture. Procedure: Patient is brought to the operating theater. After undergoing adequate general anesthesia with intubation, the patient was transferred to the fracture table, positioned on the table and fluoroscopic guidance obtained throughout the surgical procedure. Prior to the commencement of the surgical procedure, a surgical pause was performed. At the time of the surgical pause, we confirmed the site and side of surgery as well as preoperative surgical markings and appropriate and timely administration of IV antibiotics, vancomycin 1 g. Availability of equipment was also confirmed. Fluoroscopy was used to confirm the fracture was appropriately reduced in both AP and lateral planes. An incision was then made slightly above the greater trochanter to allow access to the greater trochanter. An awl was used to enter the greater trochanter and a guidewire was subsequently placed. Once the guidewire was confirmed to be in appropriate position in AP and lateral planes, reaming was accomplished over this to allow for the proximal diameter of the nail. Guidewire was then removed. An 11 mm x 180 mm x 125 degree gamma 3 trochanteric nail was placed into appropriate position with positioning being confirmed in AP and lateral planes on the x-ray. It passed without difficulty. Guidewire was then passed through the jigging system into the femoral head. We wanted to be center or slightly inferior and posterior to center. Guidewire was placed into appropriate position. Once the guidewire was in appropriate position and this position was confirmed by x-ray. This was then measured and we chose a 10.5mm x 105 mm lag screw. We reamed to allow for the lag screw to be placed. The 105 mm lag screw was then passed into the femoral head through the trochanteric nail. This was passed uneventfully and again position was confirmed in AP and lateral planes. Compression was obtained under fluoroscopic guidance. The set screw was then placed in position, tightened completely, and subsequently backed off one-quarter turn. The construct was left in position and attention was directed distally. Cannulas were again used to determine appropriate placement for the distal screw. This was placed in position without difficulty. It was measured off of the drill. The appropriate length screw was then obtained and placed in position without difficulty. Once the screw was in position, we confirmed appropriate placement of the components, and we removed the jigging system. Attention was then directed to closure. The hip was copiously irrigated with normal saline with antibiotics. Following this it was dried and closed. Tensor fascia maria luz was closed proximally with 0 Vicryl in an interrupted fashion. Subcutaneous tissues were closed with 2-0 Monocryl, and the skin was closed with a continuous 3-0 Monocryl subcuticular stitch. This was then covered with Dermabond and OpSite. The patient was removed from the fracture table and returned to recovery in satisfactory condition. The patient will be discharged to the floor for postoperative rehabilitation and pain management. There were no specimens obtained. Related Problem List Diagnoses (1) Closed intertrochanteric fracture of left femur:
[2022-03-21] MEDS: fentaNYL 50 mcg/mL INJ 2mL IVP (16:57)
[2022-03-21 20:34] LABS: C Reactive Protein 14.8 mg/L (0.0-4.9)
[2022-03-21 20:42] LABS: Procalcitonin 0.08 ng/mL (0-0.5)
[2022-03-21 20:48] LABS: Glucose Point of Care 133 mg/dL (70-110)
[2022-03-21 23:23] LABS: Adenovirus Not Detected (NOT DETECT); Chlamydia Pneumoniae Not Detected (NOT DETECT); Coronavirus 229E,HKU1,NL63,OC4 Not Detected (NOT DETECT); Human Metapneumovirus Not Detected (NOT DETECT); Human Rhinovirus/Enterovirus Not Detected (NOT DETECT); Influenza A Not Detected (NOT DETECT); Influenza A H1 Not Detected (NOT DETECT); Influenza A H1-2009 Not Detected (NOT DETECT); Influenza A H3 Not Detected (NOT DETECT); Influenza B Not Detected (NOT DETECT); Mycoplasma Pneumoniae Not Detected (NOT DETECT); Parainfluenza Virus Type 1 Not Detected (NOT DETECT); Parainfluenza Virus Type 2 Not Detected (NOT DETECT); Parainfluenza Virus Type 3 Not Detected (NOT DETECT); Parainfluenza Virus Type 4 Not Detected (NOT DETECT); Respiratory Syncytial Virus A Not Detected (NOT DETECT); Respiratory Syncytial Virus B Not Detected (NOT DETECT); SARS-COV-2 Not Detected (NOT DETECT)
[2022-03-22] VITALS (11 sets, daily range): BP systolic 81–106; BP diastolic 41–62; PULSE 60–82; RESP 16–18; TEMP 36.4–36.9; O2SAT 93–98
[2022-03-22] MEDS: oxyCODONE 5 mg IR Tab/Cap PO ×3 (03:33→16:04)
[2022-03-22 04:01] LABS: Basophils % 0.2 %; Eosinophils % 0.2 %; Hematocrit 36.1 % (42.0-52.0); Hemoglobin 12.2 g/dL (11.7-16.6); Lymphocytes # 1.1 10^3/uL (0.8-4.8); Mean Corpuscular HGB Conc 33.8 g/dL (30.0-36.0); Mean Corpuscular Hemoglobin 32.5 pg (28.0-34.0); Mean Corpuscular Volume 96.3 fl (80-94); Mean Platelet Volume 10.3 fL (7.4-10.4); Monocytes # 0.9 10^3/uL (0.2-0.9); Monocytes % 6.5 %; Neutrophils # 11.18 10^3/uL (1.8-7.7); Neutrophils % 84.6 %; Nucleated Red Blood Cells % 0 %; Platelet Count 177 10^3/cmm (130-400); Red Blood Count 3.75 10^6/uL (4.1-5.3); Red Cell Distribution Width 12.9 % (12.1-15.1); White Blood Count 13.2 10^3/uL (4.0-10.0)
[2022-03-22 04:23] LABS: Alanine Aminotransferase 8 U/L (0-41); Albumin Level 2.9 g/dL (3.5-5.2); Alkaline Phosphatase 76 IU/L (40-130); Anion Gap 12.7 (5-19); Aspartate Amino Transferase 14 U/L (0-40); Blood Urea Nitrogen 11 mg/dL (8-23); Calcium 7.8 mg/dL (8.5-10.5); Carbon Dioxide 23 mmol/L (22-29); Chloride 107 mmol/L (98-107); Creatinine Clr Calc Pharmacy 51.1866; Globulin 2.5 g/dL (1.3-4.6); Glucose 115 mg/dL (65-115); Magnesium 1.7 mg/dL (1.7-2.3); Osmolality Calculated 288 mOsm/kg (285-295); Phosphorus 2.6 mg/dL (2.5-4.5); Potassium 3.7 mmol/L (3.5-5.1); Sodium 139 mmol/L (136-145); Total Bilirubin 1.1 mg/dL (0.15-1.2); Total Protein 5.4 g/dL (6.6-8.7)
[2022-03-22] MEDS: multivitamin therapeutic Tablet 1 TAB PO (08:30)
[2022-03-22] MEDS: acetaminophen 325 mg Tablet 650 MG PO (08:31)
[2022-03-22] MEDS: folic acid 1 mg Tablet PO (08:31)
[2022-03-22] MEDS: pantoprazole DR 40 mg Tablet PO (08:31)
[2022-03-22] MEDS: docusate sodium 100 mg Capsule PO ×2 (08:31→18:06)
[2022-03-22] MEDS: aspirin 325 mg EC Tablet PO (08:31)
[2022-03-22] MEDS: CELEcoxib 200 mg Capsule PO (08:31)
[2022-03-22] MEDS: thiamine 100 mg Tablet PO (10:09)
[2022-03-22] MEDS: D5-NS 0.45% + KCL 20 mEq 20 MEQ/1,000 ML BAG 50 MEQ IV (12:44)
--- NOTE | 2022-03-22 13:40 | PM.PN ---
Subjective Subjective: Patient was seen this morning, he sitting up beside the bed, he tells me that he has some pain with getting upset that he has not walked yet, no fevers overnight, no nausea, no vomiting, no chest pain, no palpitations, blood pressures have been soft, denies any lightheadedness, no dizziness Vitals/I&O/Wt Last Vital Signs Temp 97.6 F 03/22/22 11:39 Pulse 82 03/22/22 11:39 Resp 17 03/22/22 11:39 BP 97/55 03/22/22 11:39 Pulse Ox 96 03/22/22 11:39 03/21/22 03/22/22 03/22/22 22:59 06:59 14:59 Intake Total 1239 / 1339 600 / 600 Output Total 450 / 450 350 / 800 100 / 100 Balance 789 / 889 -350 / 539 500 / 500 Weight last 48 hrs Weight 56.699 kg Physical Exam Const: COMMON NORMALS: no acute distress and patient oriented x3 Resp: COMMON NORMALS: normal respiratory effort, No retractions, No use of accessory muscles and clear to auscultation bilaterally AUSCULTATION: clear to auscultation bilaterally Cardio: COMMON NORMALS: regular rate, regular rhythm, S1 normal heart sound present and S2 normal heart sound present RATE: regular rate RHYTHM: regular rhythm HEART SOUNDS: S1 normal heart sound present and S2 normal heart sound present GI: COMMON NORMALS: Normal to inspection, nondistended, normoactive bowel sounds present, Soft to palpation and non-tender PALPATION: Yes Soft to palpation Extremity: COMMON NORMALS: no pedal edema Neuro: COMMON NORMALS: patient oriented x3 Psych: COMMON NORMALS: mental status grossly normal Urinary Catheter Management: Ramos: Cath Placed During This Visit: yes, but has since been removed by the nurse Reason for Continuing Indwelling Catheter: Decision to DC Catheter Urinary Catheter Date of Insertion: 03/21/22 Urinary Catheter Time of Insertion: 00:41 Date Urinary Catheter Removed: 03/22/22 Time Urinary Catheter Discontinued: 09:02 Data : 03/22/22 03:18 03/22/22 03:18 Micro: Microbiology 03/21/22 00:40 Urine Culture - Preliminary Urine,Clean Catch A&P Assessment and plan (1) Closed intertrochanteric fracture of left femur: Status: Acute Qualifiers: Encounter type: initial encounter Fracture alignment: displaced Qualified Code(s): S72.142A - Displaced intertrochanteric fracture of left femur, initial encounter for closed fracture (2) Alcoholism: Status: Chronic (3) Nicotine dependence, cigarettes, uncomplicated: Status: Chronic (4) History of psychiatric symptoms: Status: Chronic Plan Inpatient admission Patient is status post open reduction internal fixation Will have stool softener and as needed laxative, monitor as he reports usually having loose stools Vitamin B12 and folate [facility] protocol Monitor blood sugars for drop We will continue IV fluids Nicotine patch if needed Monitor for development of respiratory symptoms given smoking history UA shows greater than 100 RBCs, renal ultrasound no acute findings Ramos catheter placement perioperatively Lovenox for DVT prophylaxis Working on penitentiary placement Patient desires to be allowed natural in the event that he has an acute deterioration in clinical condition that is anticipated to lead to and based on my discussion with him today my clinical opinion is he is able to make this decision for himself Attestations Medical Necessity Statement*: Patient requires hospitalization for hip replacement Coding Level of Care Code Acute System Integration Engineer for Leigh Salazar Diagnoses Closed intertrochanteric fracture of left femur S72.142A Encounter type: initial encounter Fracture alignment: displaced Alcoholism F10.20 Nicotine dependence, cigarettes, uncomplicated F17.210 History of psychiatric symptoms Z86.59
[2022-03-22] MEDS: enoxaparin 40 mg/0.4 mL Syringe SUBCUT (14:07)
[2022-03-22] MEDS: vancomycin 1,000 MG in sodium chloride 0.9% 250 ML 250 MG IV (14:07)
--- NOTE | 2022-03-22 18:17 | PC.NURSE ---
Charge nurse was notified about low Blood pressure
--- NOTE | 2022-03-22 21:27 | PM.PN ---
Subjective Subjective: Patient notes that he walked with physical therapy today. He is awaiting transfer to shelter. He is in agreement with this plan. Medications: Reviewed: Yes Vitals/I&O/Wt Last Vital Signs Temp 98.1 F 03/22/22 19:50 Pulse 80 03/22/22 19:50 Resp 17 03/22/22 19:50 BP 95/58 03/22/22 19:50 Pulse Ox 98 03/22/22 19:50 03/22/22 03/22/22 03/22/22 06:59 14:59 22:59 Intake Total 600 / 600 1250 / 1850 Output Total 350 / 800 100 / 100 Balance -350 / 539 500 / 500 1250 / 1750 Physical Exam Const: COMMON NORMALS: no acute distress, patient oriented x3 and alert GENERAL APPEARANCE: cooperative and comfortable NUTRITIONAL APPEARANCE: thin ORIENTATION/CONSCIOUSNESS: Yes awake HENMT: COMMON NORMALS: normocephalic and atraumatic HEAD & SCALP: normocephalic and atraumatic Eye: GENERAL EYE: appearance normal, both eyes and all related structures Chest: COMMONS NORMALS: normal inspection of the chest Resp: COMMON NORMALS: normal respiratory effort EFFORT & INSPECTION: Yes able to speak in complete sentences and Yes symmetric chest movement Extremity: LEFT LOWER EXTREMITY: Yes hip joint (Dressings are dry and intact.) Left hip: Yes inspection (No swelling or drainage), Yes palpation (Minimal discomfort), Yes ROM (Not evaluated) and Yes neurovascular exam (Intact distally with no evidence of DVT) Neuro: COMMON NORMALS: patient oriented x3 SENSORIUM/ORIENTATION: Yes alert Psych: COMMON NORMALS: mental status grossly normal APPEARANCE: Yes grossly normal ATTITUDE: Yes calm and Yes engaged ATTENTION/CONCENTRATION: Yes attention grossly intact Skin: COMMON NORMALS: no rashes or lesions noted GENERAL SKIN EXAM: no rashes or lesions noted Urinary Catheter Management: Ramos: Cath Placed During This Visit: yes, but has since been removed by the nurse Reason for Continuing Indwelling Catheter: Decision to DC Catheter Urinary Catheter Date of Insertion: 03/21/22 Urinary Catheter Time of Insertion: 00:41 Date Urinary Catheter Removed: 03/22/22 Time Urinary Catheter Discontinued: 09:02 Data : 03/22/22 03:18 03/22/22 03:18 Micro: Microbiology 03/21/22 00:40 Urine Culture - Preliminary Urine,Clean Catch A&P Assessment and plan (1) Closed intertrochanteric fracture of left femur: Patient fell suffering a comminuted intertrochanteric left hip fracture with minimal shortening and minimal displacement. He was admitted through the emergency department for treatment. He was evaluated and admitted by the medical service. He tolerated the surgery well has been up with physical therapy. He will likely require shelter at the time of discharge. 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
[2022-03-22 22:22] LABS: Glucose Point of Care 117 mg/dL (70-110)
[2022-03-22 22:22] LABS: Glucose Point of Care 115 mg/dL (70-110)
[2022-03-23] VITALS (7 sets, daily range): BP systolic 90–122; BP diastolic 40–67; PULSE 74–80; RESP 15–18; TEMP 36.4–36.9; O2SAT 94–97
[2022-03-23] MEDS: oxyCODONE 5 mg IR Tab/Cap PO ×2 (01:20→12:52)
[2022-03-23 05:19] LABS: Basophils # 0.1 10^3/uL (0.0-0.1); Basophils % 0.4 %; Eosinophils # 0.1 10^3/uL (0.0-0.8); Eosinophils % 0.9 %; Hematocrit 34.3 % (42.0-52.0); Hemoglobin 11.6 g/dL (11.7-16.6); Lymphocytes # 1.4 10^3/uL (0.8-4.8); Lymphocytes % 11.7 %; Mean Corpuscular HGB Conc 33.8 g/dL (30.0-36.0); Mean Corpuscular Hemoglobin 33.3 pg (28.0-34.0); Mean Corpuscular Volume 98.6 fl (80-94); Mean Platelet Volume 10.8 fL (7.4-10.4); Monocytes # 0.8 10^3/uL (0.2-0.9); Monocytes % 6.6 %; Neutrophils # 9.53 10^3/uL (1.8-7.7); Nucleated Red Blood Cells % 0 %; Platelet Count 172 10^3/cmm (130-400); Red Blood Count 3.48 10^6/uL (4.1-5.3); Red Cell Distribution Width 13.2 % (12.1-15.1); White Blood Count 11.9 10^3/uL (4.0-10.0)
[2022-03-23 05:42] LABS: Alanine Aminotransferase 7 U/L (0-41); Albumin Level 2.8 g/dL (3.5-5.2); Alkaline Phosphatase 71 IU/L (40-130); Anion Gap 9.8 (5-19); Aspartate Amino Transferase 14 U/L (0-40); Blood Urea Nitrogen 13 mg/dL (8-23); Carbon Dioxide 25 mmol/L (22-29); Chloride 108 mmol/L (98-107); Globulin 2.4 g/dL (1.3-4.6); Glucose 88 mg/dL (65-115); Magnesium 1.9 mg/dL (1.7-2.3); Osmolality Calculated 288 mOsm/kg (285-295); Phosphorus 2.3 mg/dL (2.5-4.5); Potassium 3.8 mmol/L (3.5-5.1); Sodium 139 mmol/L (136-145); Total Bilirubin 0.8 mg/dL (0.15-1.2); Total Protein 5.2 g/dL (6.6-8.7)
[2022-03-23 06:37] LABS: Glucose Point of Care 82 mg/dL (70-110)
[2022-03-23] MEDS: CELEcoxib 200 mg Capsule PO (09:16)
[2022-03-23] MEDS: docusate sodium 100 mg Capsule PO ×2 (09:16→18:21)
[2022-03-23] MEDS: aspirin 325 mg EC Tablet PO (09:16)
[2022-03-23] MEDS: folic acid 1 mg Tablet PO (09:17)
[2022-03-23] MEDS: multivitamin therapeutic Tablet 1 TAB PO (09:17)
[2022-03-23] MEDS: thiamine 100 mg Tablet PO (09:17)
[2022-03-23] MEDS: pantoprazole DR 40 mg Tablet PO (09:17)
--- NOTE | 2022-03-23 10:05 | PM.OP ---
Operative Report Date of procedure: March 23, 2022 Pre-op diagnosis: Left Intertrochanteric fracture femur Post-op diagnosis: Left Intertrochanteric fracture femur Procedure done: Open reduction internal fixation left intertrochanteric hip fracture Implants: Zhanna gamma 3 trochanteric nail size 11 mm x 180 mm x 125 degrees, a 10.5 mm x 90 mm proximal lag screw, and a 5 mm x 35 mm distal locking screw Specimens removed/disposition: None Pathology: none sent Surgeon: Halley Rhodes Anesthesia: General (LMA, ASA 3) Estimated blood loss (mL): 100 IV fluids (mL): 700 Urine output (mL): 200 Related Problem List Diagnoses (1) Closed intertrochanteric fracture of left femur:
--- NOTE | 2022-03-23 11:22 | PM.PN ---
Subjective Subjective: Patient notes that he walked with nursing today, and is awaiting physical therapy. He is awaiting transfer to [facility]. He is in agreement with this plan. Medications: Reviewed: Yes Vitals/I&O/Wt Last Vital Signs Temp 97.7 F 03/23/22 08:00 Pulse 78 03/23/22 08:00 Resp 16 03/23/22 08:00 BP 122/67 03/23/22 08:00 Pulse Ox 96 03/23/22 08:00 03/22/22 03/23/22 03/23/22 22:59 06:59 14:59 Intake Total 1250 / 5633 1920554 / 3596720 Output Total 200 / 200 Balance 1250 / 5284 [id number] / [id number] Physical Exam Const: COMMON NORMALS: no acute distress, patient oriented x3 and alert GENERAL APPEARANCE: cooperative and comfortable NUTRITIONAL APPEARANCE: thin ORIENTATION/CONSCIOUSNESS: Yes awake HENMT: COMMON NORMALS: normocephalic and atraumatic HEAD & SCALP: normocephalic and atraumatic Eye: GENERAL EYE: appearance normal, both eyes and all related structures Chest: COMMONS NORMALS: normal inspection of the chest Resp: COMMON NORMALS: normal respiratory effort EFFORT & INSPECTION: Yes able to speak in complete sentences and Yes symmetric chest movement Extremity: LEFT LOWER EXTREMITY: Yes hip joint (Dressings remain dry and intact) Left hip: Yes inspection (No swelling), Yes palpation (Minimal to no pain), Yes ROM (Evaluated.) and Yes neurovascular exam (Intact distally with no evidence of DVT) Neuro: COMMON NORMALS: patient oriented x3 SENSORIUM/ORIENTATION: Yes alert Psych: COMMON NORMALS: mental status grossly normal APPEARANCE: Yes grossly normal ATTITUDE: Yes calm and Yes engaged ATTENTION/CONCENTRATION: Yes attention grossly intact Skin: COMMON NORMALS: no rashes or lesions noted GENERAL SKIN EXAM: no rashes or lesions noted Urinary Catheter Management: Ramos: Cath Placed During This Visit: yes, but has since been removed by the nurse Reason for Continuing Indwelling Catheter: Decision to DC Catheter Urinary Catheter Date of Insertion: 03/21/22 Urinary Catheter Time of Insertion: 00:41 Date Urinary Catheter Removed: 03/22/22 Time Urinary Catheter Discontinued: 09:02 Data : 03/23/22 04:43 03/23/22 04:43 Micro: Microbiology 06/16/22 00:40 Urine Culture - Final Urine,Clean Catch A&P Assessment and plan (1) Closed intertrochanteric fracture of left femur: Patient fell suffering a comminuted intertrochanteric left hip fracture with minimal shortening and minimal displacement. He was admitted through the emergency department for treatment. He was evaluated and admitted by the medical service. He tolerated the surgery well, and he has been up with physical therapy. He will likely require [facility] at the time of discharge. Status: Acute Qualifiers: Encounter type: initial encounter Fracture alignment: displaced Qualified Code(s): S72.142A - Displaced intertrochanteric fracture of left femur, initial encounter for closed fracture Attestations Medical Necessity Statement*: Ongoing management of left intertrochanteric hip fracture Coding Level of Care Code Acute [facility] L[facility] Diagnoses Closed intertrochanteric fracture of left femur S72.142A Encounter type: initial encounter Fracture alignment: displaced
--- NOTE | 2022-03-23 11:34 | PC.SOCIAL ---
Pg 2 IMM Explained to pt Pg 2 IMM. No questions voiced. Provided pt a copy. Initialed, dated, & timed a copy & placed in chart.
[2022-03-23] MEDS: enoxaparin 40 mg/0.4 mL Syringe SUBCUT (14:28)
--- NOTE | 2022-03-23 15:03 | P.PN_ITS ---
Subjective Subjective: Patient was seen this morning, he is ambulating with physical therapy, his blood pressures have been soft throughout the day yesterday, he denies any lightheadedness, no dizziness, no chest pain, no palpitations, no calf pain, no calf swelling, no hemoptysis, no shortness of breath, on room air ambulating without shortness of breath Vitals/I&O/Wt Last Vital Signs Temp 97.8 F 03/23/22 11:41 Pulse 74 03/23/22 11:41 Resp 18 03/23/22 12:52 BP 90/40 03/23/22 11:41 Pulse Ox 97 03/23/22 11:41 03/23/22 03/23/22 03/23/22 06:59 14:59 22:59 Intake Total 5264570 / 3299942 Output Total 200 / 200 Balance 5473349 / 6824643 Physical Exam Const: COMMON NORMALS: no acute distress and patient oriented x3 Resp: COMMON NORMALS: normal respiratory effort, No retractions, No use of accessory muscles and clear to auscultation bilaterally AUSCULTATION: clear to auscultation bilaterally Cardio: COMMON NORMALS: regular rate, regular rhythm, S1 normal heart sound present and S2 normal heart sound present RATE: regular rate RHYTHM: regular rhythm HEART SOUNDS: S1 normal heart sound present and S2 normal heart sound present GI: COMMON NORMALS: Normal to inspection, nondistended, normoactive bowel sounds present, Soft to palpation and non-tender PALPATION: Yes Soft to palpation Extremity: COMMON NORMALS: no pedal edema Neuro: COMMON NORMALS: patient oriented x3 Psych: COMMON NORMALS: mental status grossly normal Urinary Catheter Management: Ramos: Cath Placed During This Visit: yes, but has since been removed by the nurse Reason for Continuing Indwelling Catheter: Decision to DC Catheter Urinary Catheter Date of Insertion: 03/21/22 Urinary Catheter Time of Insertion: 00:41 Date Urinary Catheter Removed: 03/22/22 Time Urinary Catheter Discontinued: 09:02 Data : 03/23/22 04:43 03/23/22 04:43 Micro: Microbiology 03/21/22 00:40 Urine Culture - Final Urine,Clean Catch A&P Assessment and plan (1) Closed intertrochanteric fracture of left femur: Status: Acute Qualifiers: Encounter type: initial encounter Fracture alignment: displaced Qualified Code(s): S72.142A - Displaced intertrochanteric fracture of left femur, initial encounter for closed fracture (2) Alcoholism: Status: Chronic (3) Nicotine dependence, cigarettes, uncomplicated: Status: Chronic (4) History of psychiatric symptoms: Status: Chronic Plan Inpatient admission Patient is status post open reduction internal fixation Will have stool softener and as needed laxative, monitor as he reports usually having loose stools CIWA protocol Monitor blood sugars for drop Can discontinue IV fluids Nicotine patch if needed Monitor for development of respiratory symptoms given smoking history UA shows greater than 100 RBCs, renal ultrasound no acute findings Ramos catheter placement perioperatively Lovenox for DVT prophylaxis Working on correction placement Patient desires to be allowed natural in the event that he has an acute deterioration in clinical condition that is anticipated to lead to and based on my discussion with him today my clinical opinion is he is able to make this decision for himself Attestations Medical Necessity Statement*: Patient requires hospitalization for hip fracture, PT OT, alcohol withdrawal Coding Level of Care Code Acute 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
[2022-03-24] VITALS: BP 118/55; PULSE 79; RESP 17; TEMP 36.9; O2SAT 90
[2022-03-24 04:00] VITALS: BP 120/67; PULSE 83; RESP 17; TEMP 37; O2SAT 96
[2022-03-24 04:21] LABS: Basophils # 0.1 10^3/uL (0.0-0.1); Basophils % 0.5 %; Eosinophils # 0.2 10^3/uL (0.0-0.8); Eosinophils % 1.5 %; Hematocrit 32.7 % (42.0-52.0); Hemoglobin 11.3 g/dL (11.7-16.6); Lymphocytes # 1.4 10^3/uL (0.8-4.8); Lymphocytes % 13.2 %; Mean Corpuscular HGB Conc 34.6 g/dL (30.0-36.0); Mean Corpuscular Hemoglobin 32.5 pg (28.0-34.0); Mean Platelet Volume 11.1 fL (7.4-10.4); Monocytes # 0.6 10^3/uL (0.2-0.9); Neutrophils # 8.36 10^3/uL (1.8-7.7); Neutrophils % 78.5 %; Nucleated Red Blood Cells % 0 %; Platelet Count 187 10^3/cmm (130-400); Red Blood Count 3.48 10^6/uL (4.1-5.3); Red Cell Distribution Width 12.8 % (12.1-15.1); White Blood Count 10.7 10^3/uL (4.0-10.0)
[2022-03-24 04:41] LABS: Alanine Aminotransferase 6 U/L (0-41); Albumin Level 2.8 g/dL (3.5-5.2); Alkaline Phosphatase 74 IU/L (40-130); Anion Gap 12.6 (5-19); Aspartate Amino Transferase 11 U/L (0-40); Blood Urea Nitrogen 13 mg/dL (8-23); Calcium 8.1 mg/dL (8.5-10.5); Carbon Dioxide 22 mmol/L (22-29); Chloride 108 mmol/L (98-107); Globulin 2.5 g/dL (1.3-4.6); Glucose 101 mg/dL (65-115); Osmolality Calculated 288 mOsm/kg (285-295); Phosphorus 2.4 mg/dL (2.5-4.5); Potassium 3.6 mmol/L (3.5-5.1); Sodium 139 mmol/L (136-145); Total Bilirubin 0.7 mg/dL (0.15-1.2); Total Protein 5.3 g/dL (6.6-8.7)
[2022-03-24 07:46] VITALS: BP 122/69; PULSE 84; RESP 17; TEMP 36.3; O2SAT 98
[2022-03-24] MEDS: pantoprazole DR 40 mg Tablet PO (09:45)
[2022-03-24] MEDS: folic acid 1 mg Tablet PO (09:45)
[2022-03-24] MEDS: multivitamin therapeutic Tablet 1 TAB PO (09:45)
[2022-03-24] MEDS: acetaminophen 325 mg Tablet 650 MG PO (09:45)
[2022-03-24] MEDS: aspirin 325 mg EC Tablet PO (09:45)
[2022-03-24] MEDS: docusate sodium 100 mg Capsule PO (09:45)
[2022-03-24] MEDS: thiamine 100 mg Tablet PO (09:45)
[2022-03-24] MEDS: CELEcoxib 200 mg Capsule PO (09:46)
[2022-03-24 12:00] VITALS: BP 102/45; PULSE 75; RESP 15; TEMP 36.4; O2SAT 97
--- NOTE | 2022-03-24 14:00 | P.PN_ITS ---
Subjective Subjective: Patient was seen this morning, he has no complaints, no nausea, no vomiting, no chest pain Vitals/I&O/Wt Last Vital Signs Temp 97.5 F L 03/24/22 12:00 Pulse 75 03/24/22 12:00 Resp 15 03/24/22 12:00 BP 102/45 03/24/22 12:00 Pulse Ox 97 03/24/22 12:00 03/23/22 03/24/22 03/24/22 22:59 06:59 14:59 Intake Total 240 / [id number] 240 / 240 Output Total 500 / 700 Balance 240 / 9286737 -500 / 4651825 240 / 240 Physical Exam Const: COMMON NORMALS: no acute distress and patient oriented x3 Resp: COMMON NORMALS: normal respiratory effort, No retractions, No use of accessory muscles and clear to auscultation bilaterally AUSCULTATION: clear to auscultation bilaterally Cardio: COMMON NORMALS: regular rate, regular rhythm, S1 normal heart sound present and S2 normal heart sound present RATE: regular rate RHYTHM: regular rhythm HEART SOUNDS: S1 normal heart sound present and S2 normal heart sound present GI: COMMON NORMALS: Normal to inspection, nondistended, normoactive bowel sounds present, Soft to palpation, non-tender and No hepatosplenomegaly present PALPATION: Yes Soft to palpation and Yes No hepatosplenomegaly present Extremity: COMMON NORMALS: no pedal edema Neuro: COMMON NORMALS: patient oriented x3 Psych: COMMON NORMALS: mental status grossly normal Urinary Catheter Management: Ramos: Cath Placed During This Visit: yes, but has since been removed by the nurse Reason for Continuing Indwelling Catheter: Decision to DC Catheter Urinary Catheter Date of Insertion: 03/21/22 Urinary Catheter Time of Insertion: 00:41 Date Urinary Catheter Removed: 03/22/22 Time Urinary Catheter Discontinued: 09:02 Data : 03/24/22 03:33 03/24/22 03:33 A&P Assessment and plan (1) Closed intertrochanteric fracture of left femur: Status: Acute Qualifiers: Encounter type: initial encounter Fracture alignment: displaced Qualified Code(s): S72.142A - Displaced intertrochanteric fracture of left femur, initial encounter for closed fracture (2) Alcoholism: Status: Chronic (3) Nicotine dependence, cigarettes, uncomplicated: Status: Chronic (4) History of psychiatric symptoms: Status: Chronic Plan Inpatient admission Patient is status post open reduction internal fixation Will have stool softener and as needed laxative, monitor as he reports usually having loose stools CIWA protocol, out of withdrawal window Monitor blood sugars for drop Can discontinue IV fluids Nicotine patch if needed Monitor for development of respiratory symptoms given smoking history UA shows greater than 100 RBCs, renal ultrasound no acute findings Ramos catheter placement perioperatively Lovenox for DVT prophylaxis Working on [facility] placement Patient desires to be allowed natural in the event that he has an acute deterioration in clinical condition that is anticipated to lead to and based on my discussion with him today my clinical opinion is he is able to make this decision for himself Attestations Medical Necessity Statement*: Patient requires hospitalization for open reduction internal fixation, proceed with [facility] placement Coding Level of Care Code Acute Director Volunteer Services for [facility] Diagnoses Closed intertrochanteric fracture of left femur S72.142A Encounter type: initial encounter Fracture alignment: displaced Alcoholism F10.20 Nicotine dependence, cigarettes, uncomplicated F17.210 History of psychiatric symptoms Z86.59
[2022-03-24] MEDS: enoxaparin 40 mg/0.4 mL Syringe SUBCUT (14:34)
[2022-03-24 16:00] VITALS: BP 127/71; PULSE 81; RESP 16; TEMP 36.9; O2SAT 97
--- NOTE | 2022-03-24 16:09 | P.PN_ITS ---
Subjective Subjective: Patient is seen lying in bed once again today. He is not complaining of hip pain today. He feels that he is doing okay but is awaiting placement. Medications: Reviewed: Yes Vitals/I&O/Wt Last Vital Signs Temp 97.5 F L 03/24/22 12:00 Pulse 75 03/24/22 12:00 Resp 15 03/24/22 12:00 BP 102/45 03/24/22 12:00 Pulse Ox 97 03/24/22 12:00 03/24/22 03/24/22 03/24/22 06:59 14:59 22:59 Intake Total 240 / 240 Output Total 500 / 700 Balance -500 / 6231242 240 / 240 Physical Exam Const: COMMON NORMALS: no acute distress, patient oriented x3 and alert GENERAL APPEARANCE: cooperative and comfortable NUTRITIONAL APPEARANCE: thin ORIENTATION/CONSCIOUSNESS: Yes awake HENMT: COMMON NORMALS: normocephalic and atraumatic HEAD & SCALP: normocephalic and atraumatic Eye: GENERAL EYE: appearance normal, both eyes and all related structures Chest: COMMONS NORMALS: normal inspection of the chest Resp: COMMON NORMALS: normal respiratory effort EFFORT & INSPECTION: Yes able to speak in complete sentences and Yes symmetric chest movement Extremity: LEFT LOWER EXTREMITY: Yes hip joint (Dressings are dry and intact with no drainage.) Left hip: Yes inspection (There is no swelling or ecchymosis) , Yes palpation (Minimal to no tenderness) and Yes neurovascular exam (Intact distally with no evidence of DVT) Neuro: COMMON NORMALS: patient oriented x3 SENSORIUM/ORIENTATION: Yes alert Psych: COMMON NORMALS: mental status grossly normal APPEARANCE: Yes grossly normal ATTITUDE: Yes calm and Yes engaged ATTENTION/CONCENTRATION: Yes attention grossly intact Skin: COMMON NORMALS: no rashes or lesions noted GENERAL SKIN EXAM: no rashes or lesions noted Urinary Catheter Management: Ramos: Cath Placed During This Visit: yes, but has since been removed by the nurse Reason for Continuing Indwelling Catheter: Decision to DC Catheter Urinary Catheter Date of Insertion: 03/21/22 Urinary Catheter Time of Insertion: 00:41 Date Urinary Catheter Removed: 03/22/22 Time Urinary Catheter Discontinued: 09:02 Data : 03/24/22 03:33 03/24/22 03:33 A&P Assessment and plan (1) Closed intertrochanteric fracture of left femur: Patient fell suffering a comminuted intertrochanteric left hip fracture with minimal shortening and minimal displacement. He was admitted through the emergency department for treatment. Patient is status post open reduction internal fixation of an intertrochanteric hip fracture. He is awaiting placement for ongoing skilled care and rehabilitation. Currently, his pain appears well managed. Status: Acute Qualifiers: Encounter type: initial encounter Fracture alignment: displaced Qualified Code(s): S72.142A - Displaced intertrochanteric fracture of left femur, initial encounter for closed fracture Attestations Medical Necessity Statement*: Ongoing medical care following open reduction internal fixation of left intertrochanteric hip fracture. Awaiting [facility] placement. 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
[2022-03-24 20:00] VITALS: BP 123/65; PULSE 81; RESP 17; TEMP 36.9; O2SAT 95
[2022-03-25] VITALS: BP 126/68; PULSE 79; RESP 17; TEMP 36.8; O2SAT 94
[2022-03-25 04:00] VITALS: BP 115/66; PULSE 67; RESP 18; TEMP 36.8; O2SAT 97
[2022-03-25 05:40] LABS: Basophils % 0.5 %; Eosinophils # 0.2 10^3/uL (0.0-0.8); Eosinophils % 2.1 %; Hematocrit 33.7 % (42.0-52.0); Hemoglobin 11.3 g/dL (11.7-16.6); Lymphocytes # 1.6 10^3/uL (0.8-4.8); Lymphocytes % 20.9 %; Mean Corpuscular HGB Conc 33.5 g/dL (30.0-36.0); Mean Corpuscular Hemoglobin 32.6 pg (28.0-34.0); Mean Corpuscular Volume 97.1 fl (80-94); Mean Platelet Volume 10.2 fL (7.4-10.4); Monocytes # 0.7 10^3/uL (0.2-0.9); Monocytes % 8.8 %; Neutrophils # 5.16 10^3/uL (1.8-7.7); Neutrophils % 67.4 %; Nucleated Red Blood Cells % 0 %; Platelet Count 225 10^3/cmm (130-400); Red Blood Count 3.47 10^6/uL (4.1-5.3); Red Cell Distribution Width 13.1 % (12.1-15.1); White Blood Count 7.7 10^3/uL (4.0-10.0)
[2022-03-25 06:07] LABS: Alanine Aminotransferase 8 U/L (0-41); Albumin Level 2.9 g/dL (3.5-5.2); Alkaline Phosphatase 74 IU/L (40-130); Anion Gap 12.5 (5-19); Aspartate Amino Transferase 17 U/L (0-40); Blood Urea Nitrogen 13 mg/dL (8-23); Calcium 8.4 mg/dL (8.5-10.5); Carbon Dioxide 26 mmol/L (22-29); Chloride 107 mmol/L (98-107); Creatinine Clr Calc Pharmacy 51.1866; Globulin 2.6 g/dL (1.3-4.6); Glucose 92 mg/dL (65-115); Magnesium 1.9 mg/dL (1.7-2.3); Osmolality Calculated 294 mOsm/kg (285-295); Phosphorus 3.4 mg/dL (2.5-4.5); Potassium 3.5 mmol/L (3.5-5.1); Sodium 142 mmol/L (136-145); Total Bilirubin 0.8 mg/dL (0.15-1.2); Total Protein 5.5 g/dL (6.6-8.7)
--- NOTE | 2022-03-25 06:08 | PC.NURSE ---
Patient has denied pain & refused pain meds all night. He got up to the bathroom with the walker this morning & on the way back to the bed he stated that that was the first time his leg had really bothered him. This Nurse asked him if he was ready for pain meds, patient stated he did not want any pain meds at this time, states his leg will ease up when he gets back in bed.
[2022-03-25 07:12] VITALS: BP 123/64; PULSE 63; RESP 16; TEMP 36.6; O2SAT 95
[2022-03-25] MEDS: CELEcoxib 200 mg Capsule PO (08:29)
[2022-03-25] MEDS: pantoprazole DR 40 mg Tablet PO (08:29)
[2022-03-25] MEDS: thiamine 100 mg Tablet PO (08:29)
[2022-03-25] MEDS: docusate sodium 100 mg Capsule PO ×2 (08:29→17:22)
[2022-03-25] MEDS: multivitamin therapeutic Tablet 1 TAB PO (08:29)
[2022-03-25] MEDS: folic acid 1 mg Tablet PO (08:29)
[2022-03-25] MEDS: aspirin 325 mg EC Tablet PO (08:29)
[2022-03-25] MEDS: acetaminophen 325 mg Tablet 650 MG PO (08:30)
[2022-03-25 11:29] VITALS: BP 113/67; PULSE 61; RESP 16; TEMP 36.5; O2SAT 95
--- NOTE | 2022-03-25 13:26 | P.PN_ITS ---
Subjective Subjective: Patient is seen lying in bed once again today. He is still awaiting placement. Medications: Reviewed: Yes Vitals/I&O/Wt Last Vital Signs Temp 97.7 F 03/25/22 11:29 Pulse 61 03/25/22 11:29 Resp 16 03/25/22 11:29 BP 113/67 03/25/22 11:29 Pulse Ox 95 03/25/22 11:29 03/24/22 03/25/22 03/25/22 22:59 06:59 14:59 Intake Total 200 / 440 120 / 120 Output Total 150 / 150 Balance -150 / 90 200 / 290 120 / 120 Physical Exam Const: COMMON NORMALS: no acute distress, patient oriented x3 and alert GENERAL APPEARANCE: cooperative and comfortable NUTRITIONAL APPEARANCE: thin ORIENTATION/CONSCIOUSNESS: Yes awake HENMT: COMMON NORMALS: normocephalic and atraumatic HEAD & SCALP: normocephalic and atraumatic Eye: GENERAL EYE: appearance normal, both eyes and all related structures Chest: COMMONS NORMALS: normal inspection of the chest Resp: COMMON NORMALS: normal respiratory effort EFFORT & INSPECTION: Yes able to speak in complete sentences and Yes symmetric chest movement Extremity: LEFT LOWER EXTREMITY: Yes hip joint (No significant swelling) Neuro: COMMON NORMALS: patient oriented x3 SENSORIUM/ORIENTATION: Yes alert Psych: COMMON NORMALS: mental status grossly normal APPEARANCE: Yes grossly normal ATTITUDE: Yes calm and Yes engaged ATTENTION/CONCENTRATION: Yes a ttention grossly intact Skin: COMMON NORMALS: no rashes or lesions noted GENERAL SKIN EXAM: no rashes or lesions noted Urinary Catheter Management: Ramos: Cath Placed During This Visit: yes, but has since been removed by the nurse Reason for Continuing Indwelling Catheter: Decision to DC Catheter Urinary Catheter Date of Insertion: 03/21/22 Urinary Catheter Time of Insertion: 00:41 Date Urinary Catheter Removed: 03/22/22 Time Urinary Catheter Discontinued: 09:02 Data : 03/25/22 05:27 03/25/22 05:27 A&P Assessment and plan (1) Closed intertrochanteric fracture of left femur: Patient fell suffering a comminuted intertrochanteric left hip fracture with minimal shortening and minimal displacement. He was admitted through the emergency department for treatment. Patient is status post open reduction internal fixation of an intertrochanteric hip fracture. He is awaiting placement for ongoing skilled care and rehabilitation. Currently, his pain soniya ears well managed. 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
--- NOTE | 2022-03-25 13:28 | PC.SOCIAL ---
Pg 2 IMM Explained to pt Pg 2 IMM. No questions voiced. Provided pt a copy. Initialed, dated, & timed a copy & placed in chart.
--- NOTE | 2022-03-25 14:04 | P.PN_ITS ---
Subjective Subjective: Patient was seen this morning, he is upset with me as accidentally startled him this morning, I apologized, he is wondering why it is taking so long for long term to septum, denies any fevers, no chills, no nausea, no vomiting, has pain with ambulation, but well controlled Vitals/I&O/Wt Last Vital Signs Temp 97.7 F 03/25/22 11:29 Pulse 61 03/25/22 11:29 Resp 16 03/25/22 11:29 BP 113/67 03/25/22 11:29 Pulse Ox 95 03/25/22 11:29 03/24/22 03/25/22 03/25/22 22:59 06:59 14:59 Intake Total 200 / 440 120 / 120 Output Total 150 / 150 Balance -150 / 90 200 / 290 120 / 120 Physical Exam Const: COMMON NORMALS: no acute distress and patient oriented x3 Resp: COMMON NORMALS: normal respiratory effort, No retractions, No use of accessory muscles and clear to auscultation bilaterally AUSCULTATION: clear to auscultation bilaterally Cardio: COMMON NORMALS: regular rate, regular rhythm, S1 normal heart sound present and S2 normal heart sound present RATE: regular rate RHYTHM: regular rhythm HEART SOUNDS: S1 normal heart sound present and S2 normal heart sound present GI: COMMON NORMALS: Normal to inspection, nondistended, normoactive bowel sounds present, Soft to palpation and non-tender PALPATION: Yes Soft to palpation Extremity: COMMON NORMALS: no pedal edema Neuro: COMMON NORMALS: patient oriented x3 Psych: COMMON NORMALS: mental status grossly normal Urinary Catheter Management: Ramos: Cath Placed During This Visit: yes, but has since been removed by the nurse Reason for Continuing Indwelling Catheter: Decision to DC Catheter Urinary Catheter Date of Insertion: 03/21/22 Urinary Catheter Time of Insertion: 00:41 Date Urinary Catheter Removed: 03/22/22 Time Urinary Catheter Discontinued: 09:02 Data : 03/25/22 05:27 03/25/22 05:27 A&P Assessment and plan (1) Closed intertrochanteric fracture of left femur: Status: Acute Qualifiers: Encounter type: initial encounter Fracture alignment: displaced Qualified Code(s): S72.142A - Displaced intertrochanteric fracture of left femur, initial encounter for closed fracture (2) Alcoholism: Status: Chronic (3) Nicotine dependence, cigarettes, uncomplicated: Status: Chronic (4) History of psychiatric symptoms: Status: Chronic Plan Inpatient admission Patient is status post open reduction internal fixation Will have stool softener and as needed laxative, monitor as he reports usually having loose stools Stop CIWA protocol Monitor blood sugars for drop Nicotine patch if needed Monitor for development of respiratory symptoms given smoking history UA shows greater than 100 RBCs, renal ultrasound no acute findings DC Ramos catheter Lovenox for DVT prophylaxis Working on long term placement Patient desires to be allowed natural in the event that he has an acute deterioration in clinical condition that is anticipated to lead to and based on my discussion with him today my clinical opinion is he is able to make this decision for himself Attestations Medical Necessity Statement*: Patient requires hospitalization for left femur hip fracture, requiring PT OT Coding Level of Care Code Acute Lining Feller Blindstitch for [facility] Diagnoses Closed intertrochanteric fracture of left femur S72.142A Encounter type: initial encounter Fracture alignment: displaced Alcoholism F10.20 Nicotine dependence, cigarettes, uncomplicated F17.210 History of psychiatric symptoms Z86.59
[2022-03-25] MEDS: enoxaparin 40 mg/0.4 mL Syringe SUBCUT (15:16)
[2022-03-25 15:36] VITALS: BP 109/66; PULSE 70; RESP 16; O2SAT 96
[2022-03-25 20:00] VITALS: BP 144/65; PULSE 77; RESP 17; TEMP 37.1; O2SAT 98
[2022-03-26] VITALS: BP 121/61; PULSE 73; RESP 17; TEMP 37.1; O2SAT 97
[2022-03-26 02:22] LABS: Basophils % 0.6 %; Eosinophils # 0.2 10^3/uL (0.0-0.8); Hematocrit 31.9 % (42.0-52.0); Hemoglobin 10.8 g/dL (11.7-16.6); Lymphocytes # 1.8 10^3/uL (0.8-4.8); Lymphocytes % 25.3 %; Mean Corpuscular HGB Conc 33.9 g/dL (30.0-36.0); Mean Corpuscular Hemoglobin 32.6 pg (28.0-34.0); Mean Corpuscular Volume 96.4 fl (80-94); Mean Platelet Volume 10.4 fL (7.4-10.4); Monocytes # 0.7 10^3/uL (0.2-0.9); Monocytes % 10.5 %; Neutrophils # 4.16 10^3/uL (1.8-7.7); Neutrophils % 60.2 %; Nucleated Red Blood Cells % 0 %; Platelet Count 237 10^3/cmm (130-400); Red Blood Count 3.31 10^6/uL (4.1-5.3); Red Cell Distribution Width 13.1 % (12.1-15.1); White Blood Count 6.9 10^3/uL (4.0-10.0)
[2022-03-26 02:43] LABS: Alanine Aminotransferase 11 U/L (0-41); Albumin Level 2.7 g/dL (3.5-5.2); Alkaline Phosphatase 74 IU/L (40-130); Anion Gap 12.8 (5-19); Aspartate Amino Transferase 17 U/L (0-40); Blood Urea Nitrogen 18 mg/dL (8-23); Calcium 8.3 mg/dL (8.5-10.5); Carbon Dioxide 24 mmol/L (22-29); Chloride 108 mmol/L (98-107); Globulin 2.7 g/dL (1.3-4.6); Glucose 102 mg/dL (65-115); Magnesium 1.9 mg/dL (1.7-2.3); Osmolality Calculated 294 mOsm/kg (285-295); Phosphorus 3.1 mg/dL (2.5-4.5); Potassium 3.8 mmol/L (3.5-5.1); Sodium 141 mmol/L (136-145); Total Bilirubin 0.6 mg/dL (0.15-1.2); Total Protein 5.4 g/dL (6.6-8.7)
[2022-03-26 04:00] VITALS: BP 116/75; PULSE 71; RESP 16; TEMP 37.2; O2SAT 96
[2022-03-26 08:00] VITALS: BP 131/70; PULSE 67; RESP 16; TEMP 36.5; O2SAT 96
[2022-03-26] MEDS: folic acid 1 mg Tablet PO (08:20)
[2022-03-26] MEDS: aspirin 325 mg EC Tablet PO (08:20)
[2022-03-26] MEDS: docusate sodium 100 mg Capsule PO (08:20)
[2022-03-26] MEDS: thiamine 100 mg Tablet PO (08:20)
[2022-03-26] MEDS: multivitamin therapeutic Tablet 1 TAB PO (08:20)
[2022-03-26] MEDS: pantoprazole DR 40 mg Tablet PO (08:20)
[2022-03-26] MEDS: CELEcoxib 200 mg Capsule PO (08:20)
--- NOTE | 2022-03-26 10:09 | PM.DCS ---
Discharge Providers Date of Admission: 03/20/22 21:24 Date of Discharge: March 26, 2022 Attending Provider at Admission: Anabella Blanc MD Attending Provider at Discharge: Gautam Kline Diagnoses at Discharge Discharge Diagnosis (1) Closed intertrochanteric fracture of left femur: Status: Acute Qualifiers: Encounter type: initial encounter Fracture alignment: displaced Qualified Code(s): S72.142A - Displaced intertrochanteric fracture of left femur, initial encounter for closed fracture (2) Alcoholism: Status: Chronic (3) Nicotine dependence, cigarettes, uncomplicated: Status: Chronic (4) History of psychiatric symptoms: Status: Chronic Permanent problem details: Describes intermittent history of nonspecific psychiatric symptoms ( told I was crazy ) dating back to teenage years but denies formal psychiatric diagnosis. No history of psychiatric hospitalization or medication management. Reason for Visit Reason for Visit: FALL/ HIP PAIN Hospital Course Hospital Course Pleasant 76-year-old gentleman was admitted for cyst management after presenting with pain in his left hip after tripping over a curb. Due to concern for alcohol use disorder he was monitored with CIWA protocol, received thiamine, folic acid, multivitamin. CIWA remained low. He underwent ORIF on 03/21. Blood count with minimal decrease down to 10.8 today. Please recheck blood counts in 4 days. He is accepted to SNF for rehabilitation. He is encouraged to abstain from alcohol, seek rehabilitation. He is also encouraged to quit smoking. Please assist him with both. Of note microscopic hematuria noted on presentation, more than 100 RBC. Please follow-up urinalysis. Urine culture showed no growth. Physical Exam Const: COMMON NORMALS: alert GENERAL APPEARANCE: cooperative ORIENTATION/CONSCIOUSNESS: Yes awake HENMT: COMMON NORMALS: normocephalic, EAC's normal, Normal external nose present and moist oral mucous membranes HEAD & SCALP: normocephalic NOSE: Normal external nose present EXTERNAL AUDITORY CANAL: EAC's normal Neck/C-Spine: COMMON NORMALS: no meningeal signs Chest: CHEST: Yes Symmetrical chest wall rise Resp: COMMON NORMALS: clear to auscultation bilaterally AUSCULTATION: clear to auscultation bilaterally Cardio: COMMON NORMALS: regular rate, regular rhythm and No murmurs present (Cardio) RATE: regular rate RHYTHM: regular rhythm GI: COMMON NORMALS: Normal to inspection, nondistended, normoactive bowel sounds present, Soft to palpation and non-tender PALPATION: Yes Soft to palpation Extremity: COMMON NORMALS: no pedal edema OTHER: Clean dressings left femur. No bruising, bleeding, swelling. Extremities warm, perfused, moving feet/toes. Neuro: COMMON NORMALS: moves all extremities SENSORIUM/ORIENTATION: Yes alert MENINGEAL SIGNS: Yes no meningeal signs Psych: COMMON NORMALS: mental status grossly normal Skin: COMMON NORMALS: no wounds RASHES: no rashes Urinary Catheter Management: Ramos: Cath Placed During This Visit: yes, but has since been removed by the nurse Reason for Continuing Indwelling Catheter: Decision to DC Catheter Urinary Catheter Date of Insertion: 03/21/22 Urinary Catheter Time of Insertion: 00:41 Date Urinary Catheter Removed: 03/22/22 Time Urinary Catheter Discontinued: 09:02 Discharge Data Studies Completed and Pending Completed Studies During Hospitalization Category Date Time Status XR chest 1V portable [id number] Urgent Exams 03/20/22 19:45 Completed XR hip LT 2-3V wo/w pel* [id number] Routine Exams 03/21/22 14:57 Completed XR hip LT 2-3V wo/w pel* [id number] Stat Exams 03/20/22 19:05 Completed US renal BI* [id number] Routine Ultrasound 03/21/22 09:09 Completed Pending at discharge Category Date Time Status Complete Blood Count w/Auto AM LABS Lab 03/27/22 04:00 Ordered Comprehensive Metabolic Panel AM LABS Lab 03/27/22 04:00 Ordered Magnesium AM LABS Lab 03/27/22 04:00 Ordered Phosphorus AM LABS Lab 03/27/22 04:00 Ordered Radiology Impressions Chest X-Ray 03/20/22 19:45 IMPRESSION: No obvious acute consolidation. Limited exam as described. Followup including lateral view may be obtained if clinically indicated. Renal Ultrasound 03/21/22 09:09 IMPRESSION: Normal renal ultrasound Hip/Pelvis X-Ray 03/21/22 14:57 Impression: Internal fixation of left hip fracture. Laboratory Results WBC 6.9 10^3/uL (4.0-10.0) 03/26/22 01:52 RBC 3.31 10^6/uL (4.1-5.3) L 03/26/22 01:52 Hgb 10.8 g/dL (11.7-16.6) L 03/26/22 01:52 Hct 31.9 % (42.0-52.0) L 03/26/22 01:52 MCV 96.4 fl (80-94) H 03/26/22 01:52 MCH 32.6 pg (28.0-34.0) 03/26/22 01:52 MCHC 33.9 g/dL (30.0-36.0) 03/26/22 01:52 RDW 13.1 % (12.1-15.1) 03/26/22 01:52 Plt Count 237 10^3/cmm (130-400) 03/26/22 01:52 MPV 10.4 fL (7.4-10.4) 03/26/22 01:52 Neut % (Auto) 60.2 % 03/26/22 01:52 Lymph % (Auto) 25.3 % 03/26/22 01:52 [place] % (Auto) 10.5 % 03/26/22 01:52 Eos % (Auto) 3.0 % 03/26/22 01:52 Baso % (Auto) 0.6 % 03/26/22 01:52 Neut # (Auto) 4.16 10^3/uL (1.8-7.7) 03/26/22 01:52 Lymph # (Auto) 1.8 10^3/uL (0.8-4.8) 03/26/22 01:52 [place] # (Auto) 0.7 10^3/uL (0.2-0.9) 03/26/22 01:52 Eos # (Auto) 0.2 10^3/uL (0.0-0.8) 03/26/22 01:52 Baso # (Auto) 0.0 10^3/uL (0.0-0.1) 03/26/22 01:52 Nucleated RBC % (auto) 0 % 03/26/22 01:52 Nucleated RBCs # 0.0 /100WBC 03/26/22 01:52 PT 14.80 SECONDS (12.1-14.9) 03/21/22 05:10 INR 1.13 (0.8-1.2) 03/21/22 05:10 Sodium 141 mmol/L (136-145) 03/26/22 01:52 Potassium 3.8 mmol/L (3.5-5.1) 03/26/22 01:52 Chloride 108 mmol/L (98-107) H 03/26/22 01:52 Carbon Dioxide 24 mmol/L (22-29) 03/26/22 01:52 Anion Gap 12.8 (5-19) 03/26/22 01:52 BUN 18 mg/dL (8-23) 03/26/22 01:52 Creatinine 0.9 mg/dL (0.7-1.2) 03/26/22 01:52 GFR Calculation Not Reportable 03/26/22 01:52 Glucose 102 mg/dL (65-115) 03/26/22 01:52 POC Glucose 82 mg/dL (70-110) 03/23/22 06:27 Calculated Osmolality 294 mOsm/kg (285-295) 03/26/22 01:52 Calcium 8.3 mg/dL (8.5-10.5) L 03/26/22 01:52 Phosphorus 3.1 mg/dL (2.5-4.5) 03/26/22 01:52 Magnesium 1.9 mg/dL (1.7-2.3) 03/26/22 01:52 Total Bilirubin 0.6 mg/dL (0.15-1.2) 03/26/22 01:52 AST 17 U/L (0-40) 03/26/22 01:52 ALT 11 U/L (0-41) 03/26/22 01:52 Alkaline Phosphatase 74 IU/L (40-130) 03/26/22 01:52 C-Reactive Protein 14.8 mg/L (0.0-4.9) H 03/21/22 05:10 Total Protein 5.4 g/dL (6.6-8.7) L 03/26/22 01:52 Albumin 2.7 g/dL (3.5-5.2) L 03/26/22 01:52 Globulin 2.7 g/dL (1.3-4.6) 03/26/22 01:52 Procalcitonin 0.08 ng/mL (0-0.5) 03/21/22 05:10 Urine Color Yellow (Yellow) 03/21/22 00:40 Urine Appearance Clear (CLEAR) 03/21/22 00:40 Urine pH 5 (5-7) 03/21/22 00:40 Ur Specific [place] 1.025 (1.005-1.030) 03/21/22 00:40 Urine Protein Neg (Negative) 03/21/22 00:40 Urine Glucose (UA) Norm (Normal) 03/21/22 00:40 Urine Ketones 1+ (Negative) H 03/21/22 00:40 Urine Blood 3+ (Negative) H 03/21/22 00:40 Urine Nitrate Negative (Negative) 03/21/22 00:40 Urine Bilirubin Neg (Negative) 03/21/22 00:40 Urine Urobilinogen Norm mg/dL (Negative) 03/21/22 00:40 Ur Leukocyte Esterase Negative (Negative) 03/21/22 00:40 Urine RBC >100 /hpf (0-2) H 03/21/22 00:40 Urine WBC 0-4 /hpf (0-5) H 03/21/22 00:40 Ur Squamous Epith Cells 0-4 /hpf (0-5) H 03/21/22 00:40 Amorphous Sediment Not Reportable 03/21/22 00:40 Urine Bacteria Trace /hpf (NONE) 03/21/22 00:40 Coronavirus 229E (PCR) Not detected (NOT DETECT) 03/21/22 21:26 SARS-CoV-2 (PCR) Not detected (NOT DETECT) 03/21/22 21:26 Vitals Last Vital Signs Temp 97.7 F 03/26/22 08:00 Pulse 67 03/26/22 08:00 Resp 16 03/26/22 08:00 BP 131/70 03/26/22 08:00 Pulse Ox 96 03/26/22 08:00 Discharge Plan Discharge Patient Disposition: Xfer SNF Condition: Stable Prescriptions: New nicotine 14 mg/24 hr Patch 24 Hour 1 patch transdermal DAILY PRN (Reason: nicotine withdrawal) Qty: 90 0RF acetaminophen 325 mg Tablet 650 mg PO Q6H PRN (Reason: Mild/Mod Pain Or Temp >/= 101) Qty: 30 0RF hydrocodone-acetaminophen 5-325 mg tablet 1 tab PO Q8H PRN (Reason: pain) Qty: 10 0RF aspirin 325 mg Tablet,Delayed Release (Dr/Ec) 325 mg PO DAILY Qty: 14 0RF folic acid 1 mg Tablet 1 mg PO DAILY Qty: 90 0RF Vitamin B-1 (mononitrate) 100 mg Tablet 100 mg PO DAILY Qty: 90 0RF Thera 400 mcg Tablet 1 tab PO DAILY Qty: 90 0RF Continued ibuprofen 200 mg Tablet 200 mg PO Q6H PRN (Reason: Pain) 0RF Discontinued aspirin 325 mg Tablet 325 mg PO Q6H PRN (Reason: Pain) 0RF Discharge Orders: Discharge Order (Routine); Ordered 03/26/22 Ordered By: Gautam Kline Other Ambulatory Orders: DME: Walker (Order) Location: None Selected Ordered By: Halley Rhodes Referrals: Primary, provider [Other] - 4-7 days Halley Rhodes MD [Physician] - 04/09/22 9:00 am (Patient to be seen in the office. Initial visit will be with Kristofer Kenny NP) Discharge Diet: Usual diet Discharge Activity: Increase activity as tolerated and As per PT/OT instructions Patient Instructions: Hydrocodone/Acetaminophen (By mouth), Hip Fracture (GEN), ORIF of Hip Fracture (GEN), Opioid Safety Activity Restrictions/Additional Instructions: Wounds may remain uncovered. Weightbearing as tolerated with walker. Physical therapy for gait training, strengthening, and range of motion. Please follow up hemoglobin in 4 days for anemia. Please follow-up with your primary doctor regarding red blood cells in your urine. Please have them recheck your urinalysis, if red blood cells persist, additional diagnostic measures need to be undertaken to exclude malignancy given history of smoking. Abstain from any alcohol. Seek rehabilitation. Please also stop smoking. With your primary doctor to help you with both. Maintain fall precautions. Avoid senior living NSAIDs, opioids. Discharge Attestations Time Spent in Discharge Care*: greater than 30 min Quality Metrics Clinical Quality Measures [ No reported AMI, CVA or VTE this stay] Coding Level of Care Code Acute Chg FW DC note Exam Comprehensive Diagnoses Closed intertrochanteric fracture of left femur S72.142A Encounter type: initial encounter Fracture alignment: displaced Alcoholism F10.20 Nicotine dependence, cigarettes, uncomplicated F17.210 History of psychiatric symptoms Z86.59
[2022-03-26 11:42] VITALS: BP 97/55; PULSE 68; RESP 16; TEMP 37.2; O2SAT 97
== END 2022-03-26 13:15 | disposition skilled nursing facility (03) | DRG 482 ==
LOC: ER 21:56 → MEDSURG 22:05
PROVIDERS: Family Medicine; Nurse Practitioner Family; Specialist; Admitting Provider Hospitalist; Emergency Provider Emergency Medicine; Visit Provider Internal Medicine
PROC: 0QS706Z Reposition Left Upper Femur with Intramedullary Internal Fixation Device, Open Approach (ICD-10-PCS; CPT 27245; principal; 2022-03-21 14:30)
DX: S72.142A Displaced intertrochanteric fracture of left femur, initial encounter for closed fracture (principal); F10.20 Alcohol dependence, uncomplicated; F17.210 Nicotine dependence, cigarettes, uncomplicated; Z86.59 Personal history of other mental and behavioral disorders; W18.09XA Striking against other object with subsequent fall, initial encounter
CPT/HCPCS: 36415; 36416; 51702; 71045; 73502; 76000; 76770; 80048; 80053; 81001; 82962; 83735; 84100; 84145; 85025; 85610; 86140; 87086; 87635; 93005; 96372; 96374; 96376; 97110; 97116; 97161; 97165; 97530; 97535; 99285; C1713; J1100; J1650; J2250; J2270; J2405; J2704; J3010; J3370; J3411; J3490; J7030; J7050

== ENCOUNTER → 2022-04-09 08:45 | Outpatient (BNVA) | payer OTHER, SELFPAY | PROVIDERS: Visit Provider Nurse Practitioner Family | DX: Z98.890 Other specified postprocedural states (principal); S72.142A Displaced intertrochanteric fracture of left femur, initial encounter for closed fracture; X58.XXXA Exposure to other specified factors, initial encounter | CPT/HCPCS: 73502; 99024 ==

== ENCOUNTER 2022-05-17 12:24 | Emergency (ER) | payer OTHER, SELFPAY ==
[2022-05-17] VITALS (9 sets, daily range): BP systolic 96–133; BP diastolic 67–80; PULSE 66–169; RESP 15–28; TEMP 36.4; O2SAT 93–98; BMI 17.2
--- NOTE | 2022-05-17 12:34 | XR_ITS ---
WS: [id number] XR chest 1V portable [id number] REASON FOR EXAM: cp FINDINGS: The heart and mediastinum are within normal limits. Calcified granulomatous disease in both hemithoraces. Compared to the examination of 03/20/2022, there are no acute pulmonary parenchymal or pleural changes . A small right lung nodule is now identified in the mid/lower left lung. In retrospect there was likel y present on the previous examination but not conspicuous due to less inspiratory effort on the previ ous exam. No significant abnormality of the bony thorax. XR/XR chest 1V portable [id number] IMPRESSION: No acute chest abnormality is identified. There is a small left lung nodule which likely is a manifestation of the calcif ied granulomatous disease. However, since this patient is likely a smoker follo w-up PA and lateral chest in 4 months is recommended. More aggressive follow-up would be a noncontrast CT scan of the chest.
--- NOTE | 2022-05-17 12:43 | ED_ITS ---
HPI - Chest Pain General: Chief Complaint: Chest Pain Stated Complaint: Chest pain Time Seen by Provider: 05/17/22 12:38 Source: patient Mode of arrival: ambulatory Limitations: no limitations History of Present Illness: 76-year-old male states he been having intermittent chest pains for 3 months now. He states that he has had over 20 episodes he states that today he decided he wanted to get checked out he states he has not been seen for him before he states he been having sharp pain in the center of his chest that comes and goes some shortness of breath denies any worsening proving factors she is currently pain-free states the pain was a 2 out of 10 in triage. Denies any vomiting or diarrhea denies any abdominal pain. Associated symptoms: Reports dyspnea; Deny abdominal pain, fever(s), nausea or vomiting Review of Systems Const: Denies: fever(s), chills, body aches or change in appetite Eyes: Denies: blurry vision or eye discomfort ENMT: Denies: throat pain or dental pain Card: Reports: chest pain Resp: Reports: dyspnea GI: Denies: abdominal pain, nausea, vomiting or diarrhea : Denies: dysuria Musc: Denies: neck pain or back pain Skin/Breast: Denies: rash Neuro: Denies: headache(s) Psych: Denies: depression [place]/Lymph: Denies: easy bruising All/Imm: Denies: urticaria PFSH ED PFSH: Medical History Alcoholism History of psychiatric symptoms Describes intermittent history of nonspecific psychiatric symptoms ( told I was crazy ) dating back to teenage years but denies formal psychiatric diagnosis. No history of psychiatric hospitalization or medication management. Nicotine dependence, cigarettes, uncomplicated Surgical History History of eye surgery History of hand surgery Family History Other Heart disease Denies family history of Anesthesia complication Bleeding disorder Social History Smoking and tobacco status: current every day smoker Alcohol intake: current Alcohol type: beer and hard liquor Lives independently: Yes Household members: none Marital status: Marital status details: 3 times service: Yes ([place]) Physical Exam Const: COMMON NORMALS: no acute distress, patient oriented x3 and healthy appearing HENMT: COMMON NORMALS: normocephalic and atraumatic HEAD & SCALP: normocephalic and atraumatic Eye: COMMON NORMALS: Equal, round and reactive pupils present and EOMs intact bilaterally PUPIL: Yes Equal, round and reactive pupils present Neck/C-Spine: COMMON NORMALS: full ROM and supple Chest: COMMONS NORMALS: normal inspection of the chest and normal palpation of entire chest wall Resp: COMMON NORMALS: normal respiratory effort, No retractions, No use of accessory muscles and clear to auscultation bilaterally AUSCULTATION: clear to auscultation bilaterally Cardio: COMMON NORMALS: regular rate, regular rhythm and No murmurs present (Cardio) RATE: regular rate RHYTHM: regular rhythm GI: COMMON NORMALS: Normal to inspection, nondistended, normoactive bowel sounds present, Soft to palpation, non-tender and no masses PALPATION: Yes Soft to palpation Extremity: COMMON NORMALS: normal to inspection and full ROM Neuro: COMMON NORMALS: patient oriented x3, moves all extremities and no focal motor deficits Psych: COMMON NORMALS: mental status grossly normal, Normal thought process present and cooperative THOUGHT PROCESS: Normal thought process present Skin: COMMON NORMALS: no rashes or lesions noted and no wounds GENERAL SKIN EXAM: no rashes or lesions noted Course Vital Signs: Vital signs: Vital Signs Temperature 97.6 F 05/17/22 12:30 Pulse Rate 66 05/17/22 13:45 Respiratory Rate 15 05/17/22 13:45 Blood Pressure 96/67 05/17/22 13:45 Pulse Oximetry 95 05/17/22 13:45 Oxygen Delivery Me thod 05/17/22 12:30 MDM - Chest Pain Medical Decision Making Patient presents here with chest pain his pain has been resolved here his initial troponin EKG and x-ray are all normal he states that he has to leave I went and spoke to him at length recommended a least a 2-hour troponin he states that he was stating longer he felt improved I informed her we cannot totally rule out an NSTEMI without a 2-hour troponin and he still could be having a heart attack he understands this has a decision made capacity and signed out AGAINST MEDICAL ADVICE he is to follow-up his PCP and return if worsening he understands agrees to plan. Lab Data : 05/17/22 12:50 08 12:50 Radiology Impressions Chest X-Ray 05/17/22 12:34 IMPRESSION: No acute chest abnormality is identified. There is a small left lung nodule which likely is a manifestation of the c alcified granulomatous disease. However, since this patient is likely a smoker follow-up PA and lateral chest in 4 months is recommended. More aggressive follow-up would be a noncontrast CT scan of the chest. Laboratory Results WBC 8.1 10^3/uL (4.0-10.0) 05/17/22 12:50 RBC 5.06 10^6/uL (4.1-5.3) 05/17/22 12:50 Hgb 16.0 g/dL (11.7-16.6) 05/17/22 12:50 Hct 49.1 % (42.0-52.0) 05/17/22 12:50 MCV 97.0 fl (80-94) H 05/17/22 12:50 MCH 31.6 pg (28.0-34.0) 05/17/22 12:50 MCHC 32.6 g/dL (30.0-36.0) 05/17/22 12:50 RDW 12.7 % (12.1-15.1) 05/17/22 12:50 Plt Count 246 10^3/cmm (130-400) 05/17/22 12:50 MPV 10.9 fL (7.4-10.4) H 05/17/22 12:50 Neut % (Auto) 57.0 % 05/17/22 12:50 Lymph % (Auto) 35.1 % 05/17/22 12:50 [place] % (Auto) 6.2 % 05/17/22 12:50 Eos % (Auto) 0.9 % 05/17/22 12:50 Baso % (Auto) 0.7 % 05/17/22 12:50 Neut # (Auto) 4.62 10^3/uL (1.8-7.7) 05/17/22 12:50 Lymph # (Auto) 2.9 10^3/uL (0.8-4.8) 05/17/22 12:50 [place] # (Auto) 0.5 10^3/uL (0.2-0.9) 05/17/22 12:50 Eos # (Auto) 0.1 10^3/uL (0.0-0.8) 05/17/22 12:50 Baso # (Auto) 0.1 10^3/uL (0.0-0.1) 05/17/22 12:50 Nucleated RBC % (auto) 0 % 05/17/22 12:50 Nucleated RBCs # 0.0 /100WBC 05/17/22 12:50 Sodium 137 mmol/L (136-145) 05/17/22 12:50 Potassium 3.7 mmol/L (3.5-5.1) 05/17/22 12:50 Chloride 99 mmol/L (98-107) 05/17/22 12:50 Carbon Dioxide 23 mmol/L (22-29) 05/17/22 12:50 Anion Gap 18.7 (5-19) 05/17/22 12:50 BUN 14 mg/dL (8-23) 05/17/22 12:50 Creatinine 1.2 mg/dL (0.7-1.2) 05/17/22 12:50 GFR Calculation Not Reportable 05/17/22 12:50 Glucose 87 mg/dL (65-115) 05/17/22 12:50 Calculated Osmolality 284 mOsm/kg (285-295) L 05/17/22 12:50 Calcium 9.4 mg/dL (8.5-10.5) 05/17/22 12:50 Total Bilirubin 0.6 mg/dL (0.15-1.2) 05/17/22 12:50 AST 14 U/L (0-40) 05/17/22 12:50 ALT < 5 U/L (0-41) 05/17/22 12:50 Alkaline Phosphatase 131 IU/L (40-130) H 05/17/22 12:50 Troponin T Baseline 12 ng/L (0-15) 05/17/22 12:50 Total Protein 7.7 g/dL (6.6-8.7) 05/17/22 12:50 Albumin 4.4 g/dL (3.5-5.2) 05/17/22 12:50 Globulin 3.3 g/dL (1.3-4.6) 05/17/22 12:50 EKG Data EKG 1: I personally reviewed and interpreted this EKG as follows: EKG interpretation date: 05/17/22 EKG interpretation time: 12:55 Interpretation: nsr hr [address] or t wave abnormalities qrs 99 qtc 418 Discharge Plan Discharge Patient Disposition: Left Against Medical Advice Clinical Impression: Chest pain, Pulmonary nodule Condition: Stable Prescriptions: No Action ibuprofen 200 mg Tablet 200 mg PO Q6H PRN (Reason: Pain) nicotine 14 mg/24 hr Patch 24 Hour 1 patch transdermal DAILY PRN (Reason: nicotine withdrawal) Qty: 90 0RF acetaminophen 325 mg Tablet 650 mg PO Q6H PRN (Reason: Mild/Mod Pain Or Temp >/= 101) Qty: 30 0RF hydrocodone-acetaminophen 5-325 mg tablet 1 tab PO Q8H PRN (Reason: pain) Qty: 10 0RF aspirin 325 mg Tablet,Delayed Release (Dr/Ec) 325 mg PO DAILY Qty: 14 0RF folic acid 1 mg Tablet 1 mg PO DAILY Qty: 90 0RF Vitamin B-1 (mononitrate) 100 mg Tablet 100 mg PO DAILY Qty: 90 0RF Thera 400 mcg Tablet 1 tab PO DAILY Qty: 90 0RF Discharge Diet: Advance as tolerated Discharge Activity: Resume usual activity Patient Instructions: Chest Pain (ED) Coding Level of Care Code ED Scrap Stripper Hand for Chg Fwd Exam Comprehensive
--- NOTE | 2022-05-17 12:55 | ECG_ITS ---
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 Measurements Intervals [place] Rate: 71 P: 83 IN: 116 QRS: 96 QRSD: 99 T: 71 QT: 395 QTc: 431 Interpretive Statements SINUS RHYTHM WITH SINUS ARRHYTHMIA WITH SHORT IN INTERVAL BORDERLINE RIGHT AXIS DEVIATION [QRS AXIS > 90] Compared to ECG 03/20/2022 22:43:01 Short IN interval now present Electronically Signed On 05-17-2022 18:28:07 CDT by Patricia Oden M.D. [id number]
[2022-05-17 12:58] LABS: Basophils # 0.1 10^3/uL (0.0-0.1); Basophils % 0.7 %; Eosinophils # 0.1 10^3/uL (0.0-0.8); Eosinophils % 0.9 %; Hematocrit 49.1 % (42.0-52.0); Lymphocytes # 2.9 10^3/uL (0.8-4.8); Lymphocytes % 35.1 %; Mean Corpuscular HGB Conc 32.6 g/dL (30.0-36.0); Mean Corpuscular Hemoglobin 31.6 pg (28.0-34.0); Mean Platelet Volume 10.9 fL (7.4-10.4); Monocytes # 0.5 10^3/uL (0.2-0.9); Monocytes % 6.2 %; Neutrophils # 4.62 10^3/uL (1.8-7.7); Nucleated Red Blood Cells % 0 %; Platelet Count 246 10^3/cmm (130-400); Red Blood Count 5.06 10^6/uL (4.1-5.3); Red Cell Distribution Width 12.7 % (12.1-15.1); White Blood Count 8.1 10^3/uL (4.0-10.0)
[2022-05-17 13:28] LABS: Alanine Aminotransferase < 5 U/L (0-41); Albumin Level 4.4 g/dL (3.5-5.2); Alkaline Phosphatase 131 IU/L (40-130); Aspartate Amino Transferase 14 U/L (0-40); Blood Urea Nitrogen 14 mg/dL (8-23); Calcium 9.4 mg/dL (8.5-10.5); Carbon Dioxide 23 mmol/L (22-29); Chloride 99 mmol/L (98-107); Globulin 3.3 g/dL (1.3-4.6); Glucose 87 mg/dL (65-115); Osmolality Calculated 284 mOsm/kg (285-295); Sodium 137 mmol/L (136-145); Total Bilirubin 0.6 mg/dL (0.15-1.2); Total Protein 7.7 g/dL (6.6-8.7)
[2022-05-17 13:30] LABS: Troponin(5th) Baseline 12 ng/L (0-15)
[2022-05-17 13:31] LABS: Anion Gap 18.7 (5-19); Potassium 3.7 mmol/L (3.5-5.1)
== END 2022-05-17 14:44 | disposition left against medical advice (07) ==
PROVIDERS: Emergency Provider Emergency Medicine
DX: R07.9 Chest pain, unspecified (principal); R91.1 Solitary pulmonary nodule; Z53.21 Procedure and treatment not carried out due to patient leaving prior to being seen by health care provider; Z79.82 Long term (current) use of aspirin; F17.210 Nicotine dependence, cigarettes, uncomplicated
CPT/HCPCS: 71045; 80053; 84484; 85025; 93005; 99285

== ENCOUNTER 2024-03-19 11:13 | Emergency (ER) | payer OTHER, SELFPAY ==
[2024-03-19 11:18] VITALS: BP 126/73; PULSE 84; RESP 16; TEMP 37.3; O2SAT 95
--- NOTE | 2024-03-19 11:23 | XRR_ITS ---
PROCEDURE INFORMATION: Exam: XR Chest Exam date and time: 03/19/2024 12:03 PM Age: 78 years old Clinical indication: Other: Weakness; Patient HX: AMS TECHNIQUE: Imaging protocol: Radiologic exam of the chest. Views: 1 view. COMPARISON: CR XR chest 1V portable [id number] 05/17/2022 12:48 PM FINDINGS: Lungs: Unremarkable. No consolidation. Pleural spaces: Unremarkable. No pleural effusion. No pneumothorax. Heart/Mediastinum: Unremarkable. No cardiomegaly. Bones/joints: Unremarkable. XR/XR chest 1V portable [id number] IMPRESSION: No acute findings.
--- NOTE | 2024-03-19 11:23 | CT_ITS ---
WS: [id number] CT HEAD TECHNIQUE: Noncontrast CT of the head obtained from the skullbase to the vertex. CLINICAL INFORMATION: Encephalopathy, altered mental status COMPARISON: None. DLP: 1095.[address] scans at [facility] use at least one of these dose optimization techniques: automated e xposure control; mA and/or kV adjustment per patient size (includes targeted exams where dose is matc hed to clinical indication); or iterative reconstruction. FINDINGS: No evidence of intracranial hemorrhage or mass effect. Ventricular system and basal cisterns are perez nt. Moderate small vessel changes with moderate parenchymal volume loss. No extra-axial fluid collect ions. No evidence of mass or mass effect. Vascular calcification Paranasal sinuses and mastoid air cells are well aerated. .Normal visualized soft tissues. CT/CT head wo con* [id number] IMPRESSION: 1. No evidence of intracranial hemorrhage or mass effect. 2. Moderate small vessel changes with moderate parenchymal volume loss. 3. Vascular calcification. 4. No acute intracranial findings.
--- NOTE | 2024-03-19 11:29 | ED.C_ITS ---
HPI - Psych 2 General: Chief Complaint: Psychiatric Symptoms Stated Complaint: delusions Time Seen by Provider: 03/19/24 11:15 History of Present Illness: 78-year-old man with a history of maria a ia, alcoholism and nicotine dependence who presents to the emergency room by ambulance with worsening confusion and behavioral concerns. He lives in a night floor apartment and apparently the air conditioning was not working when EMS arrived today. There is an affidavit from his court appointed guardian. He reports increasing reports of erratic behaviors and delusions that lead him to be very inappropriate. They are concerned he might have active psychosis. Someone said he was caught trying to climb out of his window of his night floor apartment. When he was asked about it he said that he only goes out the window in his dreams. He said his () comes to his window to check on him. He is often hypersexual and inappropriate to the point that the Indians told him what women want, they all want babies, and he thinks it is his purpose in life to help them get babies and other things they need). They also report he said he was at [employer] about all the important people he is killed. On presentation here he does seem somewhat demented and nursing staff does report some hypersexual type comments at times. No focal motor deficits. Vital signs are normal. No oxygen requirements. His temp is 99.1, but apparently he did come from a very hot apartment. Review of Systems 2 Narrative: Constitutional symptoms: Negative except as documented in HPI. Skin symptoms: Negative except as documented in HPI. Eye symptoms: Negative except as documented in HPI. ENMT symptoms: Negative except as documented in HPI. Respiratory symptoms: Negative except as documented in HPI. Cardiovascular symptoms: Negative except as documented in HPI. Gastrointestinal symptoms: Negative except as documented in HPI. Genitourinary symptoms: Negative except as documented in HPI. Musculoskeletal symptoms: Negative except as documented in HPI. Neurologic symptoms: Negative except as documented in HPI. Psychiatric symptoms: Negative except as documented in HPI. Endocrine symptoms: Negative except as documented in HPI. PFSH ED 2 PFSH: Medical History Alcoholism History of psychiatric symptoms Describes intermittent history of nonspecific psychiatric symptoms ( told I was crazy ) dating back to teenage years but denies formal psychiatric diagnosis. No history of psychiatric hospitalization or medication management. Nicotine dependence, cigarettes, uncomplicated Surgical History History of eye surgery History of hand surgery Family History Other Heart disease Denies family history of Anesthesia complication Bleeding disorder Social History Smoking and tobacco/nicotine status: current every day tobacco/nicotine user Alcohol intake: current Alcohol type: beer and hard liquor Substance/Drug Use: current Other substance/drug use details: Occasional use, one joint will last several months Lives independently: Yes Household members: none Marital status: Marital status details: 3 times service: Yes ([place]) Physical Exam 2 Narrative: EXAM NARRATIVE: General: Alert, no acute distress. Skin: Warm, dry. Head: Normocephalic, atraumatic. Neck: Supple, trachea midline. Eye: Extraocular movements are intact. Ears, nose, mouth and throat: mucosa moist. Cardiovascular: Regular, Normal peripheral perfusion. Respiratory: Lungs are clear to auscultation, respirations are non-labored, breath sounds are equal, Symmetrical chest wall expansion. Gastrointestinal: Soft, Nontender, Non distended, Normal bowel sounds. Musculoskeletal: Normal ROM, no deformity. Neurological: Alert but not oriented, No focal neurological deficit observed. Psychiatric: Patient seems confused/demented. Course 2 Vital Signs: Vital signs: Vital Signs Temperature 99.1 F 03/19/24 11:18 Pulse Rate 84 03/19/24 11:18 Respiratory Rate 16 03/19/24 11:18 Blood Pressure 126/73 03/19/24 11:18 Pulse Oximetry 95 03/19/24 11:18 Oxygen Delivery Me thod Room Air 03/19/24 11:18 MDM - Psych Medical Decision Making Medical decision making: Differential diagnosis for a geriatric patient with worsening dementia/behavioral problems including but not limited to and based on the above HPI, review of systems and physical exam: Concerns for infection such as UTI or pneumonia. Alcohol intoxication. Cardiac issues or other medical problems to be ruled out prior to a geriatric/psychiatric admission Orders placed to evaluate differential diagnosis based on the above differential, HPI and physical exam Lab work, chest X-ray and ekg ordered to evaluate the pathologies and to clear the patient medically prior Chest x-ray: No acute process. No infiltrate. No pneumothorax. No cardiomegaly. This was reviewed and interpreted by myself the ER physician. CT head: Atrophy, volume loss, small vessel disease. No acute intracranial process. no intracranial hemorrhage, no evidence of infarct. no evidence of acute fracture.This was reviewed and interpreted by myself the ER physician. EK:36 AM rate 80. Normal sinus rhythm, No ST-T changes, no ectopy, normal NC & QRS intervals, This was reviewed and interpreted by myself the ER physician at 11:40 AM Lab review: - Medically cleared. - EKG shows no ischemic changes. - Blood alcohol level is negative, as well as salicylate and Tylenol. - Drug screen is negative - No signs of infection, urinalysis clear and white count is not elevated - No anemia. -BUN and creatinine are slightly elevated. He appears somewhat dehydrated. Fluids are being given in the emergency room Assessment and plan: Dementia Behavioral concerns Dehydration ? 1 L normal saline bolus in the emergency room. -Transfer to geriatric neuropsychiatric facility for continued evaluation and treatment. - All lab work was reviewed and interpreted personally by myself, the ER physician - Evaluation and treatment of this problem were appropriate in the emergency setting Lab Data 03/19/24 11:37 03/19/24 11:37 Radiology Impressions Chest X-Ray 03/19/24 11:23 IMPRESSION: No acute findings. Head CT 03/19/24 11:23 IMPRESSION: 1. No evidence of intracranial hemorrhage or mass effect. 2. Moderate small vessel changes with moderate parenchymal volume loss. 3. Vascular calcification. 4. No acute intracranial findings. Laboratory Results WBC 10.80 10^3/uL (3.29-11.43) 03/19/24 11:37 RBC 4.71 10^6/uL (3.85-5.65) 03/19/24 11:37 Hgb 15.00 g/dL (11.27-16.99) 03/19/24 11:37 Hct 45.5 % (37-53) 03/19/24 11:37 MCV 96.6 fl (82-101) 03/19/24 11:37 MCH 31.8 pg (27-33) 03/19/24 11:37 MCHC 33.0 g/dL (30-55) 03/19/24 11:37 RDW 13.3 % (12.1-15.1) 03/19/24 11:37 Plt Count 227 10^3/cmm (157-399) 03/19/24 11:37 MPV 11.0 fL (7.4-10.4) H 03/19/24 11:37 Neut % (Auto) 69.6 % 03/19/24 11:37 Lymph % (Auto) 20.1 % 03/19/24 11:37 [place] % (Auto) 8.5 % 03/19/24 11:37 Eos % (Auto) 0.9 % 03/19/24 11:37 Baso % (Auto) 0.6 % 03/19/24 11:37 Neut # (Auto) 7.52 10^3/uL (1.8-7.7) 03/19/24 11:37 Lymph # (Auto) 2.2 10^3/uL (0.8-4.8) 03/19/24 11:37 [place] # (Auto) 0.9 10^3/uL (0.2-0.9) 03/19/24 11:37 Eos # (Auto) 0.1 10^3/uL (0.0-0.8) 03/19/24 11:37 Baso # (Auto) 0.1 10^3/uL (0.0-0.1) 03/19/24 11:37 Nucleated RBC % (auto) 0 % 03/19/24 11:37 Nucleated RBCs # 0.0 /100WBC 03/19/24 11:37 Sodium 141 mmol/L (136-145) 03/19/24 11:37 Potassium 4.4 mmol/L (3.5-5.1) 03/19/24 11:37 Chloride 106 mmol/L (98-107) 03/19/24 11:37 Carbon Dioxide 21 mmol/L (22-29) L 03/19/24 11:37 Anion Gap 18.4 (5-19) 03/19/24 11:37 BUN 38 mg/dL (8-23) H 03/19/24 11:37 Creatinine 1.3 mg/dL (0.7-1.2) H 03/19/24 11:37 GFR Calculation Not Reportable 03/19/24 11:37 Glucose 90 mg/dL (65-115) 03/19/24 11:37 Calculated Osmolality 301 mOsm/kg (285-295) H 03/19/24 11:37 Lactic Acid 2.6 mmol/L (0.5-2.2) H 03/19/24 11:37 Lactic Acid (Sepsis) 1.4 mmol/L (0.5-2.2) 03/19/24 13:42 Calcium 9.3 mg/dL (8.5-10.5) 03/19/24 11:37 Total Bilirubin 0.4 mg/dL (0.15-1.2) 03/19/24 11:37 AST 15 U/L (0-40) 03/19/24 11:37 ALT 9 U/L (0-41) 03/19/24 11:37 Alkaline Phosphatase 95 U/L (40-130) 03/19/24 11:37 C-Reactive Protein 3.3 mg/L (0.0-4.9) 03/19/24 11:37 Total Protein 7.1 g/dL (6.6-8.7) 03/19/24 11:37 Albumin 3.7 g/dL (3.5-5.2) 03/19/24 11:37 Globulin 3.4 g/dL (1.3-4.6) 03/19/24 11:37 TSH 1.05 uIU/mL (0.27-4.20) 03/19/24 11:37 Urine Color Yellow (Yellow) 03/19/24 12:31 Urine Appearance Clear (CLEAR) 03/19/24 12:31 Urine pH 5 (5-7) 03/19/24 12:31 Ur Specific [place] 1.020 (1.005-1.030) 03/19/24 12:31 Urine Protein Neg (Negative) 03/19/24 12:31 Urine Glucose (UA) Norm (Normal) 03/19/24 12:31 Urine Ketones 1+ (Negative) H 03/19/24 12:31 Urine Blood Neg (Negative) 03/19/24 12:31 Urine Nitrate Negative (Negative) 03/19/24 12:31 Urine Bilirubin Neg (Negative) 03/19/24 12:31 Urine Urobilinogen Norm mg/dL (Negative) 03/19/24 12:31 Ur Leukocyte Esterase Negative (Negative) 03/19/24 12:31 Urine RBC None /hpf (0-2) 03/19/24 12:31 Urine WBC None /hpf (0-5) 03/19/24 12:31 Ur Squamous Epith Cells None /hpf (0-5) 03/19/24 12:31 Amorphous Sediment Not Reportable 03/19/24 12:31 Urine Bacteria None /hpf (NONE) 03/19/24 12:31 Salicylates < 0.3 mg/dL (3-10) L 03/19/24 11:37 Urine Opiates Screen Negative ng/mL (Negative) 03/19/24 12:31 Acetaminophen < 5.0 ug/mL (10-30) L 03/19/24 11:37 Ur Barbiturates Screen Negative ng/mL (Negative) 03/19/24 12:31 Ur Phencyclidine Scrn Negative ng/mL (Negative) 03/19/24 12:31 Ur Amphetamines Screen Negative ng/mL (Negative) 03/19/24 12:31 U Benzodiazepines Scrn Negative ng/mL (Negative) 03/19/24 12:31 Urine Cocaine Screen Negative ng/mL (Negative) 03/19/24 12:31 U Marijuana (THC) Screen Negative ng/mL (Negative) 03/19/24 12:31 Ethyl Alcohol < 10 mg/dL (0-10) 03/19/24 11:37 All radiology interpretation(s) finalized by discharge Discharge Plan Discharge Patient Disposition: Xfer Psychiatric Hosp Clinical Impression: Hypersexuality, Behavioral problems Dementia Qualifiers: Dementia type: unspecified type Dementia severity: moderate Dementia behavioral or psychological symptom: with other behavioral disturbance Qualified Code(s): F 03.B18 - Unspecified dementia, moderate, with other behavioral disturbance Condition: Stable Referrals: Rick Lo DO [Primary Care Provider] - Coding Level of Care Code ED Electronic Communications Technician for Leigh Salazar
--- NOTE | 2024-03-19 11:36 | ECG_ITS ---
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 Measurements Intervals [place] Rate: 80 P: 78 IA: 151 QRS: 88 QRSD: 78 T: 77 QT: 364 QTc: 420 Interpretive Statements SINUS RHYTHM WITH SINUS ARRHYTHMIA Compared to ECG 05/17/2022 12:55:32 Short IA interval no longer present Electronically Signed On 03-19-2024 19:05:44 CDT by Patricia Oden M.D. [id number]
[2024-03-19 11:46] LABS: Basophils # 0.1 10^3/uL (0.0-0.1); Basophils % 0.6 %; Eosinophils # 0.1 10^3/uL (0.0-0.8); Eosinophils % 0.9 %; Hematocrit 45.5 % (37-53); Lymphocytes # 2.2 10^3/uL (0.8-4.8); Lymphocytes % 20.1 %; Mean Corpuscular Hemoglobin 31.8 pg (27-33); Mean Corpuscular Volume 96.6 fl (82-101); Monocytes # 0.9 10^3/uL (0.2-0.9); Monocytes % 8.5 %; Neutrophils # 7.52 10^3/uL (1.8-7.7); Neutrophils % 69.6 %; Nucleated Red Blood Cells % 0 %; Platelet Count 227 10^3/cmm (157-399); Red Blood Count 4.71 10^6/uL (3.85-5.65); Red Cell Distribution Width 13.3 % (12.1-15.1)
--- NOTE | 2024-03-19 12:01 | PC.PHAR ---
PT IS [facility] L[facility] 03/19/24 12:00 NOON
[2024-03-19 12:06] LABS: Lactic Sepsis W/Reflex 2.6 mmol/L (0.5-2.2)
[2024-03-19 12:17] LABS: Alanine Aminotransferase 9 U/L (0-41); Albumin Level 3.7 g/dL (3.5-5.2); Alkaline Phosphatase 95 U/L (40-130); Anion Gap 18.4 (5-19); Aspartate Amino Transferase 15 U/L (0-40); Blood Urea Nitrogen 38 mg/dL (8-23); C Reactive Protein 3.3 mg/L (0.0-4.9); Calcium 9.3 mg/dL (8.5-10.5); Carbon Dioxide 21 mmol/L (22-29); Chloride 106 mmol/L (98-107); Globulin 3.4 g/dL (1.3-4.6); Glucose 90 mg/dL (65-115); Osmolality Calculated 301 mOsm/kg (285-295); Potassium 4.4 mmol/L (3.5-5.1); Sodium 141 mmol/L (136-145); Thyroid Stimulating Hormone 1.05 uIU/mL (0.27-4.20); Total Bilirubin 0.4 mg/dL (0.15-1.2); Total Protein 7.1 g/dL (6.6-8.7)
[2024-03-19 12:21] LABS: Salicylate < 0.3 mg/dL (3-10)
[2024-03-19 12:22] LABS: Acetaminophen < 5.0 ug/mL (10-30); Alcohol Level < 10 mg/dL (0-10)
[2024-03-19 12:49] LABS: Bilirubin Urine Neg (Negative); Blood Urine Neg (Negative); Glucose Urine UA Norm (Normal); Ketones Urine 1+ (Negative); Leukocyte Esterase Urine Negative (Negative); Nitrate Urine Negative (Negative); Protein Urine Neg (Negative); Urine Appearance Clear (CLEAR); Urine Color Yellow (Yellow); Urobilinogen Urine Norm (Negative); pH Urine 5 (5-7)
[2024-03-19 12:56] LABS: Add Urine Culture? No
[2024-03-19 12:58] LABS: Amphetamines Screen Urine Negative (Negative); Barbiturates Screen Urine Negative (Negative); Benzodiazepines Screen Urine Negative (Negative); Cocaine Screen Urine Negative (Negative); Opiate Screen Urine Negative (Negative); PCP Screen Urine Negative (Negative); THC Screen Urine Negative (Negative)
[2024-03-19 13:30] LABS: Reflex Lactate Order REFLEX LACTIC ORDERD
[2024-03-19 14:05] LABS: Lactic Acid level (Lactate) 1.4 mmol/L (0.5-2.2)
[2024-03-19] MEDS: sodium chloride 0.9% 1,000 ML 999 ML IV (16:05)
[2024-03-19 16:27] VITALS: BP 127/78; PULSE 70; TEMP 36.2; O2SAT 96
== END 2024-03-19 19:45 ==
PROVIDERS: Emergency Provider Emergency Medicine; PCP Emergency Medicine Emergency Medical Services
DX: F03.B18 Unspecified dementia, moderate, with other behavioral disturbance (principal); F52.8 Other sexual dysfunction not due to a substance or known physiological condition
CPT/HCPCS: 36415; 70450; 71045; 80053; 80306; 80307; 81001; 83605; 84443; 85025; 86140; 87040; 93005; 99285; J7030

== ENCOUNTER 2025-02-05 14:17 | Emergency (ER) | payer OTHER, SELFPAY ==
[2025-02-05 14:26] VITALS: BP 66/37; PULSE 88; RESP 14; O2SAT 96
--- NOTE | 2025-02-05 14:28 | PC.PHAR ---
patient is from [facility]
--- NOTE | 2025-02-05 14:44 | W.ED.GENADLT ---
HPI - General Adult General: Stated complaint: resp failure Time Seen by Provider: 02/05/25 14:36 History of Present Illness: 79-year-old male brought in via EMS for respiratory failure. Patient is a DNR/DNI however ambulance staff did intubate him. Patient is very frail, we did call [facility] and he is a kennedy of the [facility] and has a DNR and is not wanting extensive care. Patient's ET tube had a leak and was needing to be exchanged out. Instead of exchanging out since he is a DNR/DNI with very poor prognosis pt was extubated. Patient is nonresponsive with low blood pressure in resp arrest . Based on patient's presentation and DNR/DNI wishes I will just place him on comfort care as he has very poor outcome likelihood without extensive lifesaving measures. Related Data Home Medications ?Medication ?Instructions ?Recorded ?Confirmed cholecalciferol (vitamin D3) 50 50 mcg PO DAILY 03/19/24 02/05/25 mcg (2,000 unit) tablet cyanocobalamin (vitamin B-12) 1,000 mcg PO DAILY 03/19/24 02/05/25 1,000 mcg tablet escitalopram oxalate 20 mg tablet 20 mg PO DAILY 02/05/25 02/05/25 ibuprofen 200 mg tablet 200 mg PO Q6H PRN Pain 02/05/25 02/05/25 magnesium hydroxide 400 mg/5 mL 30 ml PO DAILY PRN Constipation 02/05/25 02/05/25 oral suspension (Milk of Magnesia) medroxyprogesterone 10 mg tablet 10 mg PO TID 02/05/25 02/05/25 mirtazapine 30 mg tablet 30 mg PO QPM 02/05/25 02/05/25 multivitamin 1 tab PO DAILY 02/05/25 02/05/25 olanzapine 5 mg tablet 5 mg PO BID 02/05/25 02/05/25 prazosin 1 mg capsule 1 mg PO DAILY 02/05/25 02/05/25 quetiapine 300 mg tablet 300 mg PO QPM 02/05/25 02/05/25 tramadol 50 mg tablet 50 mg PO TID 02/05/25 02/05/25 Previous Rx's ?Medication ?Instructions ?Recorded acetaminophen 325 mg tablet 650 mg (2 x 325 mg) PO Q6H PRN 03/26/22 Mild/Mod Pain Or Temp >/= 101 #30 tabs aspirin 325 mg tablet,delayed 325 mg PO DAILY #14 tabs 03/26/22 release folic acid 1 mg tablet 1 mg PO DAILY #90 tabs 03/26/22 multivitamin with folic acid 400 1 tab PO DAILY #90 tabs 03/26/22 mcg tablet (Thera) thiamine mononitrate (vit B1) 100 100 mg PO DAILY #90 tabs 03/26/22 mg tablet (Vitamin B-1 (mononitrate)) Allergies Allergy/AdvReac Type Severity Reaction Status Date / Time Penicillins Allergy Unknown Unknown Verified 04/09/22 08:49 Review of Systems General: Reports: ROS unobtainable due to endotracheal tube and ROS unobtainable due to medical condition PFSH ED PFSH: Medical History Alcoholism History of psychiatric symptoms Describes intermittent history of nonspecific psychiatric symptoms ( told I was crazy ) dating back to teenage years but denies formal psychiatric diagnosis. No history of psychiatric hospitalization or medication management. Nicotine dependence, cigarettes, uncomplicated Surgical History History of eye surgery History of hand surgery Family History Other Heart disease Denies family history of Anesthesia complication Bleeding disorder Social History Smoking and tobacco/nicotine status: current every day tobacco/nicotine user Alcohol intake: current Alcohol type: beer and hard liquor Substance/Drug Use: current Other substance/drug use details: Occasional use, one joint will last several months Lives independently: Yes Household members: none Marital status: Marital status details: 3 times service: Yes ([place]) Physical Exam Const: OTHER: Frail, intubated, nonresponsive HENMT: OTHER: Pupils 3 mm bilateral nonresponsive Resp: OTHER: Decreased respiratory effort, decreased breath sounds Cardio: OTHER: Weak pulses, regular rate Course Vital Signs: Vital signs: Vital Signs Fraction of Inspir ed Oxygen 100 02/05/25 14:32 [facility] - General Adult Medical Decision Making Patient at 1455 due to respiratory and likely cardiac arrest. Lab Data 02/05/25 14:50 02/05/25 14:50 No radiology studies performed this visit Discharge Plan Discharge Patient Disposition: Clinical Impression: Respiratory arrest before cardiac arrest Coding Level of Care Code ED Statistical Reporting Analyst for Leigh Salazar
[2025-02-05 14:55] VITALS: BP 0/0; PULSE 0; O2SAT 0
[2025-02-05 14:59] LABS: Basophils # 0.1 10^3/uL (0.0-0.1); Basophils % 0.5 %; Hematocrit 27.9 % (37-53); Lymphocytes # 1.7 10^3/uL (0.8-4.8); Lymphocytes % 10.6 %; Mean Corpuscular HGB Conc 30.1 g/dL (30-55); Mean Corpuscular Hemoglobin 30.2 pg (27-33); Mean Corpuscular Volume 100.4 fl (82-101); Mean Platelet Volume 11.6 fL (7.4-10.4); Monocytes # 0.3 10^3/uL (0.2-0.9); Monocytes % 1.9 %; Neutrophils # 13.45 10^3/uL (1.8-7.7); Neutrophils % 82.3 %; Nucleated Red Blood Cells % 0.2 %; Platelet Count 292 10^3/cmm (157-399); Red Blood Count 2.78 10^6/uL (3.85-5.65); Red Cell Distribution Width 14.8 % (12.1-15.1); White Blood Count 16.34 10^3/uL (3.29-11.43)
[2025-02-05 15:15] LABS: Alanine Aminotransferase 7 U/L (0-41); Albumin Level 1.4 g/dL (3.5-5.2); Alkaline Phosphatase 59 U/L (40-130); Anion Gap 18.6 (5-19); Aspartate Amino Transferase 13 U/L (0-40); Calcium 7.6 mg/dL (8.5-10.5); Carbon Dioxide 17 mmol/L (22-29); Chloride 120 mmol/L (98-107); Globulin 2.9 g/dL (1.3-4.6); Glucose 128 mg/dL (65-115); Osmolality Calculated 344 mOsm/kg (285-295); Potassium 3.6 mmol/L (3.5-5.1); Sodium 152 mmol/L (136-145); Total Bilirubin 0.4 mg/dL (0.15-1.2); Total Protein 4.3 g/dL (6.6-8.7)
[2025-02-05 15:17] LABS: Blood Urea Nitrogen 92 mg/dL (8-23)
[2025-02-05 15:20] LABS: Slide Review Slide Review Perform
--- NOTE | 2025-02-05 15:34 | ECG_ITS ---
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 Measurements Intervals [place] Rate: 87 P: 75 UT: 138 QRS: 98 QRSD: 91 T: 121 QT: 368 QTc: 445 Interpretive Statements SINUS RHYTHM BORDERLINE RIGHT AXIS DEVIATION [QRS AXIS > 90] PATTERN CONSISTENT WITH PULMONARY DISEASE ST DEVIATION AND MODERATE T-WAVE ABNORMALITY, CONSIDER LATERAL ISCHEMIA [-0.1+ mV T-WAVE IN I/aVL/V5/V6] Compared to ECG 03/19/2024 11:36:39 T-wave abnormality now present Possible ischemia now present Sinus arrhythmia no longer present Electronically Signed On 02-07-2025 10:24:34 CDT by Jerel Castrejon M.D. [id number]
--- NOTE | 2025-02-05 16:03 | PC.NURSE ---
Kiana at [facility] states that Ronak Carbajal needs to be contacted to determine retirement because he is a kennedy of the [facility] and there is no retirement in pts chart. phone number for him is [phone]. this rn has attempted to contact him and havent gotten an answer.
--- NOTE | 2025-02-05 21:47 | PC.NURSE ---
[address] [facility] been notified of patient's and Mr. Degroot has released the body.
== END 2025-02-05 14:55 | disposition expired ==
PROVIDERS: Emergency Provider Student in an Organized Health Care Education/Training Program; PCP Emergency Medicine Emergency Medical Services
DX: R09.2 Respiratory arrest (principal); Z72.0 Tobacco use
CPT/HCPCS: 80053; 85025; 93005; 94002; 99285